=== PATIENT | female | born 1975 | race American Indian/Alaskan Native ===

== ENCOUNTER 2016-12-14 11:33 | Emergency (ER) | payer MEDICAID ==
[2016-12-14 11:36] VITALS: BP 114/67
[2016-12-14] MEDS ORDERED: LORazepam 1 MG Tab PO ONE (11:41)
--- NOTE | 2016-12-14 11:48 | EDM.PDOC ---
ED HPI NEURO - General Chief Complaint: Behavioral/Psych Stated Complaint: [facility] Time Seen by Provider: 12/14/16 11:41 Source of Information: Reports: Patient, EMS History Limitations: Reports: No limitations - History of Present Illness INITIAL COMMENTS - FREE TEXT/NARRATIVE: The patient presents by [facility] for a anxiety attack. The patient said her daughter recently got and she moved away. She has been worried about her because she is so young and that got to her this morning. She had numbness to the left side of her body and she was hyperventilating with cramping of her hands. She is seeing Dr Mckeon a neurologist at [facility] and he does not think she is having seizures but she is having anxiety attacks. She had no fever, chills, cough, chest pain, or shortness of breath. She feels better now. She just has a mild headache. The dump worker on seen did not see any seizure activity. Timing/Duration: Reports: Minutes: Location (Neuro Complaint): Reports: other (Left sided numbness and cramping of her hands) Quality (Neuro Complaint): Reports: numbness Severity: moderate Improves with: Reports: None Worsens with: Reports: None Associated Symptoms: Reports: headaches (Mild). Denies: shortness of breath, chest pain, cough, fever/chills, loss of appetite, nausea/vomiting - Related Data Allergies/ADRs: Allergies Allergy/AdvReac Type Severity Reaction Status Date / Time codeine Allergy Rash Verified 03/21/16 08:28 Penicillins Allergy Rash Verified 03/21/16 08:28 Home Meds: Home Meds ARIPiprazole [Abilify] 5 mg PO DAILY 05/16/14 [History] Escitalopram [Lexapro] 20 mg PO DAILY 05/16/14 [History] traZODone HCl [Trazodone HCl] 50 mg PO DAILY PRN 05/16/14 [History] busPIRone [Buspar] 5 mg PO TID 07/29/15 [History] traMADol HCl [Tramadol HCl] 50 mg PO Q6H PRN #20 tablet 02/23/16 [Rx] Past Medical History Other Gastrointestinal History: Laproscopy Other Genitourinary History: "kidney problems" Other OB/BYN History: laproscopic surgery for prolapsed uterus Psychiatric History: Reports: Addiction, Anxiety, Depression, Mood swings ( Explosive mood disorder), Other (see below) (Borderline personality disorder) Other Psychiatric History: boarderline personality disorder, depression and explossive disorder. - Past Surgical History Female Surgical History: Reports: Other (see below) (Exploratory laparoscopy for prolapsed uterus) Social & Family History - Family History Cardiac: Reports: CAD Oncologic: Reports: Breast, Colon, Leukemia - Tobacco Use Smoking Status *Q: Current Every Day Smoker Years of Tobacco use: 30 Packs/Tins Daily: 0.5 Used Tobacco, but Quit: No Second Hand Smoke Exposure: Yes - Alcohol Use Days Per Week of Alcohol Use: 2 Number of Drinks Per Day: 2 Total Drinks Per Week: 4 - Recreational Drug Use Recreational Drug Use: Yes Recreational Drug Type: Reports: Marijuana/Hashish Recreational Drug Use Frequency: Not Used In Over 6 Months - Living Situation & Occupation Living situation: Reports: single, with significant other (Fiance) Occupation: disabled ED ROS GENERAL - Review of Systems Review Of Systems: See Below Constitutional: Reports: no symptoms HEENT: Reports: No symptoms Respiratory: Reports: No Symptoms Cardiovascular: Reports: No symptoms Endocrine: Reports: no symptoms GI/Abdominal: Reports: No symptoms : Reports: no symptoms Musculoskeletal: Reports: no symptoms Skin: Reports: no symptoms Neurological: Reports: Headache, Numbness (To the left side of her body that is better now). Denies: Weakness ED EXAM, NEURO - Physical Exam Exam: See Below Exam Limited By: No limitations General Appearance: alert, no apparent distress Ears: normal external exam Nose: normal inspection Head Exam: atraumatic, normocephalic Neck: normal inspection Respiratory/Chest: no respiratory distress, lungs clear, normal breath sounds Cardiovascular: regular rate, rhythm, no edema, no murmur GI/Abdominal: soft, non tender, no organomegaly, no mass Neurological: alert, no motor/sensory deficits, oriented x 3 Course - Vital Signs Last Recorded V/S: Last Vital Signs Temp 97.5 F 12/14/16 11:36 Pulse 65 12/14/16 11:36 Resp 20 12/14/16 11:36 BP 114/67 12/14/16 11:36 Pulse Ox 98 12/14/16 11:36 - Orders/Labs/Meds Labs: Laboratory Tests 12/14/16 12/14/16 12/14/16 Range/Units 11:45 11:56 11:56 WBC 7.43 (3.98-10.04) K/mm3 RBC 4.71 (3.98-5.22) M/mm3 Hgb 14.5 (11.2-15.7) gm/L Hct 42.5 (34.1-44.9) % MCV 90.2 (79.4-94.8) fl MCH 30.8 (25.6-32.2) pg MCHC 34.1 (32.2-35.5) g/dl RDW Std Deviation 45.6 (36.4-46.3) fL Plt Count 272 (182-369) K/mm3 MPV 10.2 (9.4-12.3) fl Neut % (Auto) 60.8 (34.0-71.1) % Lymph % (Auto) 30.6 (19.3-51.7) % Dickinson % (Auto) 6.3 (4.7-12.5) % Eos % (Auto) 1.7 (0.7-5.8) Baso % (Auto) 0.5 (0.1-1.2) % Neut # (Auto) 4.51 (1.56-6.13) K/mm3 Lymph # (Auto) 2.27 (1.18-3.74) K/mm3 Dickinson # (Auto) 0.47 H (0.24-0.36) K/mm3 Eos # (Auto) 0.13 (0.04-0.36) K/mm3 Baso # (Auto) 0.04 (0.01-0.08) K/mm3 Sodium 140 (136-145) mEq/L Potassium 4.3 (3.5-5.1) mEq/L Chloride 103 (98-107) mEq/L Carbon Dioxide 28 (21-32) mEq/L Anion Gap 13.3 (5-15) BUN 12 (7-18) mg/dL Creatinine 0.9 (0.55-1.02) mg/dL Est Cr Clr Drug Dosing 84.23 mL/min Estimated GFR (MDRD) > 60 (>60) mL/min BUN/Creatinine Ratio 13.3 L (14-18) Glucose 100 (74-106) mg/dL Calcium 9.0 (8.5-10.1) mg/dL Total Bilirubin 0.5 (0.2-1.0) mg/dL AST 14 L (15-37) U/L ALT 26 (14-59) U/L Alkaline Phosphatase 93 (46-116) U/L Total Protein 7.4 (6.4-8.2) g/dl Albumin 3.9 (3.4-5.0) g/dl Globulin 3.5 gm/dL Albumin/Globulin Ratio 1.1 (1-2) Urine Color Yellow (Yellow) Urine Appearance Clear (Clear) Urine pH 7.0 (5.0-8.0) Ur Specific [place] 1.015 (1.005-1.030) Urine Protein Negative (Negative) Urine Glucose (UA) Negative (Negative) Urine Ketones Negative (Negative) Urine Occult Blood Negative (Negative) Urine Nitrite Negative (Negative) Urine Bilirubin Negative (Negative) Urine Urobilinogen 0.2 (0.2-1.0) Ur Leukocyte Esterase Trace H (Negative) Urine RBC Not seen (0-5) /hpf Urine WBC 0-5 (0-5) /hpf Urine WBC Clumps Not seen (NOT SEEN) /hpf Ur Epithelial Cells 5-10 H (0-5) /hpf Urine Bacteria Few (FEW) /hpf Urine Mucus Not seen (FEW) /hpf Urine Yeast Not seen (NOT SEEN) Meds: Medications Discontinued Medications Generic Name Dose Route Start Last Admin Trade Name Freq PRN Reason Stop Dose Admin Lorazepam 1 mg 12/14/16 11:41 12/14/16 11:47 Ativan PO 12/14/16 11:42 1 mg ONETIME ONE Administration - Re-Assessments/Exams Free Text/Narrative Re-Assessment/Exam: 12/14/16 11:48 I ordered some ativan 1mg by mouth and labs. 12/14/16 12:38 Her CBC and CMP look good. Her UA shows no UTI. She feels better. Her daughter is 17 and she consented for he to get and she did and then moved back to [facility]. She is going to call [facility] on Thursday and talk with a counselor. I will discharge her home. Departure - Departure Time of Disposition: 12:45 Disposition: Home, Self-Care 01 Condition: good Clinical Impression: Anxiety attack Referrals: Destini Coronado MD [Primary Care Provider] - 1 Week Forms: ED Department Discharge Additional Instructions: Take your medication as prescribed. Follow up with a counselor at [facility] this week. Please return if you are worse.
== END 2016-12-14 13:50 | disposition home or self-care (01) ==
LOC: JD.ED 11:33
DX: F41.9 Anxiety disorder, unspecified (principal); F17.210 Nicotine dependence, cigarettes, uncomplicated; F32.9 Major depressive disorder, single episode, unspecified; Z98.890 Other specified postprocedural states; Z79.899 Other long term (current) drug therapy; Z88.0 Allergy status to penicillin; Z88.5 Allergy status to narcotic agent
CPT/HCPCS: 36415; 80053; 81001; 85025; 99284; A9270; 99283

== ENCOUNTER 2017-02-24 18:13 | Emergency (ER) | payer MEDICAID ==
[2017-02-24 18:24] VITALS: BP 103/65
--- NOTE | 2017-02-24 18:36 | EDM.PDOC ---
ED HPI GENERAL MEDICAL PROBLEM - General Chief Complaint: Upper Extremity Injury/Pain Stated Complaint: L HAND INJURY Time Seen by Provider: 02/24/17 18:25 Source of Information: Reports: Patient, RN Notes Reviewed - History of Present Illness INITIAL COMMENTS - FREE TEXT/NARRATIVE: 41-year-old female states she had a seizure and fell injuring her left hand. This happened several hours ago. She states she was outside and fell onto concrete. She also scraped her right knee. He has been ambulatory without difficulty. She denies head and neck back chest or other pain or injury from this incident. The hand pain is worse over the volar and ulnar aspect of her hand Left Hand Pain Score (Numeric/FACES): 5 - Related Data Allergies Allergy/AdvReac Type Severity Reaction Status Date / Time codeine Allergy Rash Verified 02/24/17 18:24 Penicillins Allergy Rash Verified 02/24/17 18:24 Home Meds: Home Meds ARIPiprazole [Abilify] 5 mg PO DAILY 05/16/14 [History] Escitalopram [Lexapro] 20 mg PO DAILY 05/16/14 [History] traZODone HCl [Trazodone HCl] 50 mg PO DAILY PRN 05/16/14 [History] busPIRone [Buspar] 5 mg PO TID 07/29/15 [History] traMADol HCl [Tramadol HCl] 50 mg PO Q6H PRN #20 tablet 02/23/16 [Rx] Past Medical History Gastrointestinal History: Reports: Other (See Below) Other Gastrointestinal History: Laproscopy Other Genitourinary History: "kidney problems" Other OB/BYN History: 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 - Past Surgical History Female Surgical History: Reports: Other (See Below) Social & Family History - Family History Cardiac: Reports: CAD Oncologic: Reports: Breast, Colon, Leukemia - Tobacco Use Smoking Status *Q: Current Every Day Smoker Years of Tobacco use: 30 Packs/Tins Daily: 1.5 Used Tobacco, but Quit: No Second Hand Smoke Exposure: Yes - Caffeine Use Caffeine Use: Reports: Coffee, Soda - Alcohol Use Days Per Week of Alcohol Use: 2 Number of Drinks Per Day: 2 Total Drinks Per Week: 4 - Recreational Drug Use Recreational Drug Use: No Recreational Drug Type: Reports: Marijuana/Hashish Other Recreational Drug Type: has not used in years Recreational Drug Use Frequency: Not Used In Over 6 Months - Living Situation & Occupation Living situation: Reports: Single, with Significant Other Occupation: Disabled Review of Systems - Review of Systems Review Of Systems: See Below Eyes: Reports: No Symptoms Mouth/Throat: Reports: No Symptoms Respiratory: Denies: Shortness of Breath Cardiovascular: Denies: Chest Pain GI/Abdominal: Denies: Abdominal Pain, Nausea, Vomiting Musculoskeletal: Reports: Joint Pain (Ulnar aspect), Other (No visible swelling or deformity) Skin: Reports: Erythema (Left hand) Neurological: Denies: Numbness, Tingling ED EXAM, GENERAL - Physical Exam Exam: See Below General Appearance: Alert, Mild Distress Throat/Mouth: Normal Inspection Head: Atraumatic Neck: Normal Inspection, Supple, Non-Tender Respiratory/Chest: No Respiratory Distress Extremities: Other (Tender left hand no visible swelling or deformity, wrist forearm and elbow are all nontender). No: Leg Pain Neurological: Alert, Oriented, No Motor/Sensory Deficits Skin Exam: Warm, Dry, Intact Course - Vital Signs Last Recorded V/S: Last Vital Signs Temp 97.5 F 02/24/17 18:21 Pulse 97 02/24/17 18:21 Resp 16 02/24/17 18:21 BP 103/65 02/24/17 18:21 Pulse Ox 98 02/24/17 18:21 - Orders/Labs/Meds Orders: Active Orders 24 hr Category Date Time Status Hand Comp Min 3V Lt [CR] Stat Exams 02/24/17 18:32 Taken Acetaminophen [Tylenol] Med 02/24/17 19:12 Once 975 mg PO NOW ONE - Re-Assessments/Exams Free Text/Narrative Re-Assessment/Exam: 02/24/17 19:12 X-rays of hand show no fracture Departure - Departure Time of Disposition: 19:13 Disposition: Home, Self-Care 01 Condition: Fair Clinical Impression: Hand contusion Qualifiers: Encounter type: initial encounter Laterality: left Qualified Code(s): S60.222A - Contusion of left hand, initial encounter Fall Qualifiers: Encounter type: initial encounter Qualified Code(s): W19.XXXA - Unspecified fall, initial encounter - Discharge Information Forms: ED Department Discharge Additional Instructions: Twan wrap left hand, ice packs and elevation for swelling, you may continue to alternate Tylenol and ibuprofen or motrin as needed for discomfort, have rechecked if not getting back to normal within 5-7 days as expected - My Orders Last 24 Hours: My Active Orders 02/24/17 18:32 Hand Comp Min 3V Lt [CR] Stat 02/24/17 19:12 Acetaminophen [Tylenol] 975 mg PO NOW ONE - Assessment/Plan Last 24 Hours: My Active Orders 02/24/17 18:32 Hand Comp Min 3V Lt [CR] Stat 02/24/17 19:12 Acetaminophen [Tylenol] 975 mg PO NOW ONE
[2017-02-24] MEDS ORDERED: Acetaminophen 325 MG Tab PO ONE (19:12)
--- NOTE | 2017-02-25 07:49 | CR ---
Left hand: Four views of the left hand were obtained. Comparison: No previous study. Joint spaces are preserved. No fracture, dislocation or other bony abnormality is seen. Impression: 1. No abnormality is identified on three-view left hand study. Diagnostic code #1
== END 2017-02-24 19:25 | disposition home or self-care (01) ==
LOC: JD.ED 18:13
DX: S60.222A Contusion of left hand, initial encounter (principal); F41.9 Anxiety disorder, unspecified; F32.9 Major depressive disorder, single episode, unspecified; F17.210 Nicotine dependence, cigarettes, uncomplicated; Z79.899 Other long term (current) drug therapy; Z88.5 Allergy status to narcotic agent; Z88.0 Allergy status to penicillin; W19.XXXA Unspecified fall, initial encounter
CPT/HCPCS: 73130; 99283; A9270; 99282

== ENCOUNTER 2017-03-21 22:52 | Emergency (ER) | payer MEDICAID ==
[2017-03-21 23:13] VITALS: BP 97/68
--- NOTE | 2017-03-21 23:17 | EDM.PDOC ---
[id number]: SOB/VOMITING Time Seen by Provider: 03/21/17 23:16 Source of Information: Reports: Patient History Limitations: Reports: No Limitations - History of Present Illness INITIAL COMMENTS - FREE TEXT/NARRATIVE: 42-year-old female arrives in the ED apparently after traveling all day from [place]. Been ill for the last several days and states she's been sick for a month. However patient reports that she's got dysuria urgency and frequency but she can't tell me for how many days. She's got fever chills nausea and vomiting. Diffuse abdominal pain productive cough of whitish sputum. Has not been able to keep down any food or fluid for the last day and a half. Had a little bit of diarrhea today. No blood noted. Had noted blood in her urine in the past but not recently. Onset: Unknown/Unsure (Several days.) Duration: Day(s): Location: Reports: Chest, Abdomen (Reductive cough diffuse abdominal pain particularly lower associated with intermittent), Back ( dysuria urgency frequency. pain in her low back bilaterally. ) Quality: Reports: Ache, Dull Severity: Moderate Improves with: Reports: None Worsens with: Reports: Other Context: Denies: Activity, Exercise (Trying to eat.), Lifting, Sick Contact, Trauma, Other Associated Symptoms: Reports: cough w sputum, Fever/Chills, Loss of Appetite, Malaise, Nausea/Vomiting, Weakness, Other (Dizziness feels like she could fall down when she stands up.). Denies: Diaphoresis (Intermittent productive cough of whitish sputum sputum. 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: Other (see below) Chest Pain Score (Numeric/FACES): 7 - Related Data Allergies Allergy/AdvReac Type Severity Reaction Status Date / Time codeine Allergy Rash Verified 02/24/17 18:24 Penicillins Allergy Rash Verified 02/24/17 18:24 Home Meds: Home Meds ARIPiprazole [Abilify] 5 mg PO DAILY 05/16/14 [History] Escitalopram [Lexapro] 20 mg PO DAILY 05/16/14 [History] traZODone HCl [Trazodone HCl] 50 mg PO DAILY PRN 05/16/14 [History] busPIRone [Buspar] 5 mg PO TID 07/29/15 [History] traMADol HCl [Tramadol HCl] 50 mg PO Q6H PRN #20 tablet 02/23/16 [Rx] Levofloxacin [Levaquin] 500 mg PO Q24H #7 tablet 03/22/17 [Rx] Past Medical History Gastrointestinal History: Reports: Other (See Below) Other Gastrointestinal History: Laproscopy Other Genitourinary History: "kidney problems" Other OB/BYN History: 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 - Past Surgical History Female Surgical History: Reports: Other (See Below) Social & Family History - Family History Family Medical History: Noncontributory Cardiac: Reports: CAD Oncologic: Reports: Breast, Colon, Leukemia - Tobacco Use Smoking Status *Q: Current Every Day Smoker Years of Tobacco use: 31 Packs/Tins Daily: 1 Used Tobacco, but Quit: No Second Hand Smoke Exposure: Yes - Caffeine Use Caffeine Use: Reports: Coffee, Soda - Alcohol Use Days Per Week of Alcohol Use: 2 Number of Drinks Per Day: 2 Total Drinks Per Week: 4 - Recreational Drug Use Recreational Drug Use: No Recreational Drug Type: Reports: Marijuana/Hashish Other Recreational Drug Type: has not used in years Recreational Drug Use Frequency: Not Used In Over 6 Months - Living Situation & Occupation Living situation: Reports: Single, with Significant Other Occupation: Disabled ED ROS GENERAL - Review of Systems Review Of Systems: See Below Constitutional: Reports: Fever, Chills, Malaise, Weakness, Fatigue, Decreased Appetite, Weight Loss HEENT: Reports: No Symptoms Respiratory: Reports: Shortness of Breath (Whitish sputum), Cough, Sputum Cardiovascular: Reports: Lightheadedness. Denies: Chest Pain, Blood Pressure Problem, Claudication, Dyspnea on Exertion, Edema, Orthopnea, Palpitations Endocrine: Reports: Fatigue GI/Abdominal: Reports: Abdominal Pain (Generalized upper abdominal pain from vomiting. Lower abdominal pain mostly suprapubic.) : Reports: Dysuria, Flank Pain, Frequency, Urgency Musculoskeletal: Reports: Back Pain Skin: Reports: No Symptoms Neurological: Reports: Dizziness, Headache, Difficulty Walking (Needs help to walk because she so weak and dizzy.), Weakness ED EXAM, GENERAL - Physical Exam Exam: See Below Exam Limited By: Other (Appears ill. Difficult historian.) General Appearance: Mild Distress, Other (Appears ill.) Eye Exam: Bilateral Eye: Normal Inspection Ears: Normal External Exam, Normal TMs Throat/Mouth: Other Head: Atraumatic (Lips are dry and cracked. Tongue is mildly dry. Oropharynx is otherwise normal.), Normocephalic Neck: Normal Inspection, Supple, Non-Tender, Full Range of Motion. No: Lymphadenopathy (L), Lymphadenopathy (R) Respiratory/Chest: No Respiratory Distress, Lungs Clear, Normal Breath Sounds, No Accessory Muscle Use, Other (Does have a productive sounding cough however. Note she is a smoker pack per day.) Cardiovascular: Normal Peripheral Pulses, Regular Rate, Rhythm, No Edema, No Gallop, No Murmur Peripheral Pulses: 2+: Posterior Tibial (L), Posterior Tibial (R), Dorsalis Pedis (L), Dorsalis Pedis (R) GI/Abdominal: Normal Bowel Sounds, Soft, Non-Tender, No Organomegaly, No Distention, No Abnormal Bruit, No Mass, Other (No surgical wounds) Back Exam: CVA Tenderness (L), CVA Tenderness (R) (Mild) Extremities: Normal Inspection, Normal Range of Motion, Non-Tender, No Pedal Edema, Normal Capillary Refill Neurological: Alert, Oriented, CN II-XII Intact, Normal Cognition, Normal Gait, Normal Reflexes Psychiatric: Flat Affect Skin Exam: Warm, Dry, Intact, Normal Color, No Rash Course - Vital Signs Last Recorded V/S: Last Vital Signs Temp 36.7 C 03/21/17 23:09 Pulse 73 03/21/17 23:09 Resp 16 03/21/17 23:09 BP 97/68 03/21/17 23:09 Pulse Ox - Orders/Labs/Meds Orders: Active Orders 24 hr Category Date Time Status Orthostatic Vital Signs [RC] ASDIRECTED Care 03/21/17 23:28 Active Chest 1V Frontal [CR] Stat Exams 03/21/17 23:16 Taken CULTURE URINE [RM] Stat Lab 03/22/17 01:05 Received Labs: Laboratory Tests 03/21/17 03/21/17 03/21/17 Range/Units 23:40 23:40 23:40 WBC 9.08 (3.98-10.04) K/mm3 RBC 4.73 (3.98-5.22) M/mm3 Hgb 14.4 (11.2-15.7) gm/L Hct 42.8 (34.1-44.9) % MCV 90.5 (79.4-94.8) fl MCH 30.4 (25.6-32.2) pg MCHC 33.6 (32.2-35.5) g/dl RDW Std Deviation 45.7 (36.4-46.3) fL Plt Count 292 (182-369) K/mm3 MPV 11.2 (9.4-12.3) fl Neutrophils % (Manual) 62 H (40-60) % Band Neutrophils % 1 (0-10) % Lymphocytes % (Manual) 28 (20-40) % Atypical Lymphs % 4 % Monocytes % (Manual) 3 (2-10) % Eosinophils % (Manual) 2 (0.7-5.8) % Basophils % (Manual) 0 L (0.1-1.2) Platelet Estimate Adequate Plt Morphology Comment Normal RBC Morph Comment Normal Sodium 140 (136-145) mEq/L Potassium 3.8 (3.5-5.1) mEq/L Chloride 103 (98-107) mEq/L Carbon Dioxide 31 (21-32) mEq/L Anion Gap 9.8 (5-15) BUN 7 (7-18) mg/dL Creatinine 0.9 (0.55-1.02) mg/dL Est Cr Clr Drug Dosing TNP Estimated GFR (MDRD) > 60 (>60) mL/min BUN/Creatinine Ratio 7.8 L (14-18) Glucose 114 H (74-106) mg/dL Lactic Acid (0.4-2.0) mmol/L Calcium 9.2 (8.5-10.1) mg/dL Total Bilirubin 0.4 (0.2-1.0) mg/dL AST 16 (15-37) U/L ALT 24 (14-59) U/L Alkaline Phosphatase 89 (46-116) U/L C-Reactive Protein 1.7 H* (<1.0) mg/dL Total Protein 7.9 (6.4-8.2) g/dl Albumin 4.0 (3.4-5.0) g/dl Globulin 3.9 gm/dL Albumin/Globulin Ratio 1.0 (1-2) Amylase 44 (25-115) U/L Urine Color (Yellow) Urine Appearance (Clear) Urine pH (5.0-8.0) Ur Specific [place] (1.005-1.030) Urine Protein (Negative) Urine Glucose (UA) (Negative) Urine Ketones (Negative) Urine Occult Blood (Negative) Urine Nitrite (Negative) Urine Bilirubin (Negative) Urine Urobilinogen (0.2-1.0) Ur Leukocyte Esterase (Negative) Urine RBC (0-5) /hpf Urine WBC (0-5) /hpf Ur Epithelial Cells (0-5) /hpf Amorphous Sediment (NOT SEEN) /hpf Urine Bacteria (FEW) /hpf Fine Granular Casts (0-5) /lpf Urine Mucus (FEW) /hpf Ketones 0.19 (0.0-0.3) mM 03/21/17 03/22/17 Range/Units 23:43 00:13 WBC (3.98-10.04) K/mm3 RBC (3.98-5.22) M/mm3 Hgb (11.2-15.7) gm/L Hct (34.1-44.9) % MCV (79.4-94.8) fl MCH (25.6-32.2) pg MCHC (32.2-35.5) g/dl RDW Std Deviation (36.4-46.3) fL Plt Count (182-369) K/mm3 MPV (9.4-12.3) fl Neutrophils % (Manual) (40-60) % Band Neutrophils % (0-10) % Lymphocytes % (Manual) (20-40) % Atypical Lymphs % % Monocytes % (Manual) (2-10) % Eosinophils % (Manual) (0.7-5.8) % Basophils % (Manual) (0.1-1.2) Platelet Estimate Plt Morphology Comment RBC Morph Comment Sodium (136-145) mEq/L Potassium (3.5-5.1) mEq/L Chloride (98-107) mEq/L Carbon Dioxide (21-32) mEq/L Anion Gap (5-15) BUN (7-18) mg/dL Creatinine (0.55-1.02) mg/dL Est Cr Clr Drug Dosing Estimated GFR (MDRD) (>60) mL/min BUN/Creatinine Ratio (14-18) Glucose (74-106) mg/dL Lactic Acid 0.9 (0.4-2.0) mmol/L Calcium (8.5-10.1) mg/dL Total Bilirubin (0.2-1.0) mg/dL AST (15-37) U/L ALT (14-59) U/L Alkaline Phosphatase (46-116) U/L C-Reactive Protein (<1.0) mg/dL Total Protein (6.4-8.2) g/dl Albumin (3.4-5.0) g/dl Globulin gm/dL Albumin/Globulin Ratio (1-2) Amylase (25-115) U/L Urine Color Yellow (Yellow) Urine Appearance Slt cloudy H (Clear) Urine pH 6.0 (5.0-8.0) Ur Specific [place] > or = 1.030 (1.005-1.030) Urine Protein Trace H (Negative) Urine Glucose (UA) Negative (Negative) Urine Ketones Negative (Negative) Urine Occult Blood Trace-lysed H (Negative) Urine Nitrite Negative (Negative) Urine Bilirubin Negative (Negative) Urine Urobilinogen 1.0 (0.2-1.0) Ur Leukocyte Esterase 1+ H (Negative) Urine RBC 0-5 (0-5) /hpf Urine WBC 0-5 (0-5) /hpf Ur Epithelial Cells 10-20 H (0-5) /hpf Amorphous Sediment Few H (NOT SEEN) /hpf Urine Bacteria Few (FEW) /hpf Fine Granular Casts 0-5 (0-5) /lpf Urine Mucus Few (FEW) /hpf Ketones (0.0-0.3) mM Meds: Medications Discontinued Medications Generic Name Dose Route Start Last Admin Trade Name Freq PRN Reason Stop Dose Admin Dextrose/Sodium Chloride 1,000 mls @ 999 mls/hr 03/21/17 23:30 03/21/17 23:48 Dextrose 5%-Normal Saline IV 999 mls/hr ASDIRECTED EMMANUEL Administration Ketorolac Tromethamine 30 mg 03/21/17 23:30 03/21/17 23:57 Toradol IVPUSH 30 mg ONETIME EMMANUEL Administration Levofloxacin 500 mg 03/22/17 00:55 07/16/17 01:14 Levaquin PO 03/22/17 00:56 500 mg ONETIME ONE Administration Metoclopramide HCl 7.5 mg 03/21/17 23:25 03/21/17 23:48 Reglan IVPUSH 03/21/17 23:26 7.5 mg ONETIME ONE Administration - Radiology Interpretation Free Text/Narrative:: 42-year-old female presents the ED with reported being ill for a month. Particularly worse the last week. Productive cough with whitish sputum. She smokes a pack of cigarettes per day. Sore throat. Intermittent nausea and vomiting for the last 3-1/2 days. Any food or fluid down the last day. One loose stool yesterday. Associated dysuria urgency and frequency. Diffuse low back pain intermittent fever and chills. Exam reveals ENT exam to be essentially normal. Lips are dry tongue is dry and she is volume depleted. Blood pressure is 97 /68. Orthostatics to be checked. She does have mild costovertebral angle tenderness bilaterally. She is afebrile on my examination however. Benign abdominal exam. Possible UTI with pyelonephritis. Plan routine labs with CRP. Urinalysis one view chest x-ray. D5 normal saline at open given Reglan 7.5 mg IV for nausea relief Toradol 30 mg IV for generalized aching pain relief. Cultures were not ordered as she is afebrile at this time. - Re-Assessments/Exams Free Text/Narrative Re-Assessment/Exam: 03/22/17 00:35 chest x-ray is within normal limits. White count was 9.08 hemoglobin 14.4 hematocrit 42.8 platelets normal 292,000. Sodium is 140 potassium is 3.. Toradol 3 bicarbonate slightly elevated at 31. Anion gap is 9.8. Glucose 114 CRP is minimally elevated 1.7. Ketones are 0.19- Normal 03/22/17 01:00: Urinalysis shows only trace of leukocyte esterase. However shows numerous ureteral epithelial cells. She may still well have a low-grade pyelonephritis. I will have a urine culture ordered. Plan I'm going to place her on Levaquin 500 mg daily for the next 8 days first tablet to be foot TB provided to the ED tonight. Continue Motrin 600 mg every 6 hours or Aleve 2 tablets every 8 hours for headache and fever relief. Departure - Departure Time of Disposition: 00:56 Disposition: Home, Self-Care 01 Condition: Fair Clinical Impression: Bronchitis Urinary tract infection Qualifiers: Urinary tract infection type: acute cystitis Hematuria presence: without hematuria Qualified Code(s): N30.00 - Acute cystitis without hematuria - Discharge Information Prescriptions: Levofloxacin [Levaquin] 500 mg PO Q24H #7 tablet Instructions: Acute Bronchitis, [id number], Urinary Tract Infection, Adult Referrals: PCP,Not In Area [Primary Care Provider] - Forms: ED Department Discharge Additional Instructions: Evaluation in the emergency room tonight in regards to upper respiratory tract infection with paroxysmal productive cough. You have bronchitis clinically. Chest x-ray did not reveal any signs of pneumonia. Lab testing revealed a normal white blood cell count and essentially a normal chemistry. Did show some degree of infection and therefore you are given first dose of antibiotic Levaquin 500 mg in the emergency room tonight. He will need to fill this prescription for the same medication Levaquin 7 500 mg once daily for the next 7 days to clear up infection both lungs and in the urinary tract. Continue Aleve 2 tablets every 8 hours as needed for relief of fever and/or pain. - My Orders Last 24 Hours: My Active Orders 03/21/17 23:16 Chest 1V Frontal [CR] Stat 03/21/17 23:28 Orthostatic Vital Signs [RC] ASDIRECTED 03/22/17 01:05 CULTURE URINE [RM] Stat - Assessment/Plan Last 24 Hours: My Active Orders 03/21/17 23:16 Chest 1V Frontal [CR] Stat 03/21/17 23:28 Orthostatic Vital Signs [RC] ASDIRECTED 03/22/17 01:05 CULTURE URINE [RM] Stat
[2017-03-21] MEDS ORDERED: Metoclopramide 10 MG/2 ML SDV IVPUSH ONE (23:25)
[2017-03-21] MEDS ORDERED: Dextrose 5%-0.9% NaCl 1,000 ML IV SCH (23:30)
[2017-03-21] MEDS ORDERED: Ketorolac 30 MG/ML SDV IVPUSH SCH (23:30)
[2017-03-22] MEDS ORDERED: Levofloxacin 250 MG Tab PO ONE (00:55)
--- NOTE | 2017-03-22 15:19 | CR ---
Chest: Portable view of the chest was obtained. Comparison: Previous chest x-ray of 03/21/16. Heart size and mediastinum are normal. Lungs are clear. Bony structures are grossly intact. Impression: 1. Nothing acute is identified on portable chest x-ray. Diagnostic code #1
== END 2017-03-22 01:18 | disposition home or self-care (01) ==
LOC: JD.ED 22:52
DX: N30.00 Acute cystitis without hematuria (principal); J40 Bronchitis, not specified as acute or chronic; F17.210 Nicotine dependence, cigarettes, uncomplicated; Z88.5 Allergy status to narcotic agent; Z88.0 Allergy status to penicillin; Z79.899 Other long term (current) drug therapy
CPT/HCPCS: 36415; 71010; 80053; 81001; 82009; 82150; 83605; 85025; 86140; 87086; 87088; 96361; 96374; 96375; 99284; A9270; J1885; J2765; J7042

== ENCOUNTER 2018-06-10 09:27 | Emergency (ER) | payer MEDICAID ==
[2018-06-10 09:40] VITALS: BP 108/77
--- NOTE | 2018-06-10 09:55 | EDM.PDOC ---
ED HPI GENERAL MEDICAL PROBLEM - General Chief Complaint: Neurological Problem Stated Complaint: SEIZURE AND MEMORY LOSS Time Seen by Provider: 06/10/18 09:47 Source of Information: Reports: Patient, Family (daughter) History Limitations: Reports: Altered Mental Status - History of Present Illness INITIAL COMMENTS - FREE TEXT/NARRATIVE: 43-year-old female presents to the ED in the accompaniement of her daughters. Daughters provide the history. She came down this morning and was asked some acting somewhat confused and dazed. While walking she seemed to start to develop trembling or repetitive movement of one of her arms and eyes seem to roll back into her head. Daughters a larger to the couch. They went and found their stepdad to attend to her. With time symptoms seem to get better will lose more formal history of 2 tonic-clonic activity. There is no loss of bowel or bladder control no injury to the tongue. His exhibited these type behaviors in the past usually due to anxiety. She has seen neurology services in the past and they did not feel she had a true seizure disorder more like pseudoseizure disorder. Patient states she doesn't recollect her family members names this morning she is confused and disoriented. She drinks approximately 2 ounces of alcohol a day per history. She smokes at least a pack to pack and half per day. Her medications are hydroxyzine at bedtime 50 mg to help sleep. Takes buspirone 15 mg wice a day for anxiety disorder and Lexapro 20 mg daily for depression. Onset: Today Onset Date: 06/10/18 Onset Time: 08:00 Duration: Minutes: Location: Reports: Generalized (Confusion dazed. Questionable seizure-like activity this morning while walking from downstairs into the living room.) Quality: Reports: Other Severity: Moderate (No pain confused in terms of ability to identify her daughters and her .) Improves with: Reports: Other Worsens with: Reports: None (Things seem to be gradually improving over time) Context: Reports: Other. Denies: Activity, Exercise, Lifting, Sick Contact, Trauma Associated Symptoms: Reports: Confusion (Spontaneous occurrence of symptoms this morning upon arising), Headaches, Weakness, Other (Questionnaire seizure- like activity involving one of her arms.). 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 (see below) (No changes to recent medications and no medications today.) - Related Data Allergies Allergy/AdvReac Type Severity Reaction Status Date / Time codeine Allergy Rash Verified 06/10/18 09:40 Penicillins Allergy Hives Verified 06/10/18 09:40 Home Meds: Home Meds Escitalopram [Lexapro] 20 mg PO DAILY 05/16/14 [History] busPIRone [Buspar] 15 mg PO BID 07/29/15 [History] hydrOXYzine pamoate [Hydroxyzine Pamoate] 75 mg PO BEDTIME 06/10/18 [History] Past Medical History Gastrointestinal History: Reports: Other (See Below) Other Gastrointestinal History: Laproscopy Genitourinary History: Reports: Renal Calculus, UTI, Recurrent Other Genitourinary History: "kidney problems" 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 - Past Surgical History Female Surgical History: Reports: Other (See Below) Social & Family History - Family History Family Medical History: Noncontributory Cardiac: Reports: CAD Oncologic: Reports: Breast, Colon, Leukemia - Tobacco Use Smoking Status *Q: Current Every Day Smoker Years of Tobacco use: 20 Packs/Tins Daily: 1 - Caffeine Use Caffeine Use: Reports: Coffee, Soda - Alcohol Use Days Per Week of Alcohol Use: 7 Number of Drinks Per Day: 2 Total Drinks Per Week: 14 - Recreational Drug Use Recreational Drug Use: No - Living Situation & Occupation Living situation: Reports: Single, with Significant Other Occupation: Disabled ED ROS GENERAL - Review of Systems Review Of Systems: See Below Constitutional: Reports: Malaise, Weakness, Fatigue, Decreased Appetite, Other ( Vital signs show BP 108/77. Respiratory is 18 with pulse ox on 96% on room air pulse is 91 and sinus temperatures 36.4). Denies: Fever, Chills HEENT: Denies: Glasses, Hearing Loss, Sinus Problem, Throat Pain Respiratory: Denies: Shortness of Breath, Wheezing, Pleuritic Chest Pain, Cough , Sputum Cardiovascular: Reports: No Symptoms, Lightheadedness. Denies: Chest Pain, Blood Pressure Problem, Claudication, Orthopnea Endocrine: Reports: Fatigue GI/Abdominal: Denies: Anorexia, Black Stool, Bloody Stool, Constipation, Diarrhea, Decreased Appetite, Difficulty Swallowing, Distension, Flatus, Hematemesis, Hematochezia, Melena, Other : Reports: Frequency Musculoskeletal: Reports: Back Pain Skin: Reports: No Symptoms Neurological: Reports: Confusion, Dizziness, Headache, Pre-Existing Deficit ( Has had similar type events before), Seizure (Questionable seizure activity this morning. Sounds like pseudoseizure activity by history), Difficulty Walking , Weakness. Denies: Numbness, Paresthesia, Syncope, Tingling, Tremors, Change in Speech, Gait Disturbance, Other Psychiatric: Reports: Anxiety, Other (Under good deal stress. Her had to go to court this morning in regards to bankruptcy.) Hematologic/Lymphatic: Reports: No Symptoms Immunologic: Reports: No Symptoms - Physical Exam Exam: See Below Exam Limited By: Altered Mental Status (She answers a lot of questions with I don't know.) General Appearance: Alert, WD/WN, No Apparent Distress, Other (Smells very strongly of cigarette smoke.) Eye Exam: Bilateral Eye: Normal Inspection, PERRL Throat/Mouth: Normal Inspection, Normal Oropharynx, Other. No: Evidence of Tongue Biting Head Exam: Atraumatic (Lips are dry and cracked. There is no sign of tongue biting), Normocephalic Neck: Normal Inspection, Tender Lateral (Tenderness throughout palpation of the left lateral neck.). No: Lymphadenopathy (L), Lymphadenopathy (R) Respiratory/Chest: No Respiratory Distress, Lungs Clear, Normal Breath Sounds, No Accessory Muscle Use, Chest Non-Tender, Wheezing Cardiovascular: Normal Peripheral Pulses, Regular Rate, Rhythm, No Edema, No Gallop, No Murmur (Occasional expiratory wheeze) GI/Abdominal: Normal Bowel Sounds, Soft, Non-Tender, No Organomegaly, No Abnormal Bruit, No Mass, Pelvis Stable, Other (There is evidence of laparoscopy before but no sign of gallbladder surgery. She's not sure what surgery she may have had in the past) Neuro Exam (Abbreviated): CN II-XII Intact, Normal Cognition, Normal Reflexes, No Motor/Sensory Deficits. No: Oriented (Disoriented to time and place), Normal Gait Back Exam: Normal Inspection, Full Range of Motion Extremities: Normal Inspection, Normal Range of Motion, Non-Tender, No Pedal Edema Psychiatric: Flat Affect Skin Exam: Warm, Dry, Intact, Normal Color, No Rash EKG INTERPRETATION EKG Date: 06/10/18 Time: 10:00 Rhythm: Other (Sinus bradycardia) Rate (Beats/Min): 51 [place]: Normal P-Wave: Present (First-degree AV block) QRS: Other (Initial poor R-wave progression decreased voltage limb leads) ST-T: Normal QT: Prolonged (Mildly prolonged) EKG Interpretation Comments: Abnormal ECG Course - Vital Signs Last Recorded V/S: Last Vital Signs Temp 36.4 C 06/10/18 09:34 Pulse 91 06/10/18 09:34 Resp 18 06/10/18 09:34 BP 108/77 06/10/18 09:34 Pulse Ox 96 06/10/18 09:34 - Orders/Labs/Meds Orders: Active Orders 24 hr Category Date Time Status EKG Documentation Completion [RC] STAT Care 06/10/18 09:47 Active Labs: Laboratory Tests 06/10/18 06/10/18 Range/Units 09:50 09:50 WBC 8.74 (3.98-10.04) K/mm3 RBC 4.80 (3.98-5.22) M/mm3 Hgb 14.5 (11.2-15.7) gm/L Hct 43.3 (34.1-44.9) % MCV 90.2 (79.4-94.8) fl MCH 30.2 (25.6-32.2) pg MCHC 33.5 (32.2-35.5) g/dl RDW Std Deviation 44.4 (36.4-46.3) fL Plt Count 269 (182-369) K/mm3 MPV 10.4 (9.4-12.3) fl Neutrophils % (Manual) 63 H (40-60) % Band Neutrophils % 2 (0-10) % Lymphocytes % (Manual) 31 (20-40) % Atypical Lymphs % 0 % Monocytes % (Manual) 2 (2-10) % Eosinophils % (Manual) 2 (0.7-5.8) % Basophils % (Manual) 0 L (0.1-1.2) Platelet Estimate Adequate RBC Morph Comment Normal Sodium 136 (136-145) mEq/L Potassium 4.1 (3.5-5.1) mEq/L Chloride 101 (98-107) mEq/L Carbon Dioxide 26 (21-32) mEq/L Anion Gap 13.1 (5-15) BUN 13 (7-18) mg/dL Creatinine 0.8 (0.55-1.02) mg/dL Est Cr Clr Drug Dosing 86.36 mL/min Estimated GFR (MDRD) > 60 (>60) mL/min BUN/Creatinine Ratio 16.3 (14-18) Glucose 97 (74-106) mg/dL Calcium 9.1 (8.5-10.1) mg/dL Magnesium 2.0 (1.8-2.4) mg/dl Total Bilirubin 0.5 (0.2-1.0) mg/dL AST 17 (15-37) U/L ALT 17 (14-59) U/L Alkaline Phosphatase 81 (46-116) U/L C-Reactive Protein 0.5 (<1.0) mg/dL Total Protein 7.3 (6.4-8.2) g/dl Albumin 4.1 (3.4-5.0) g/dl Globulin 3.2 gm/dL Albumin/Globulin Ratio 1.3 (1-2) Ethyl Alcohol 0.00 (0.00) gm% Meds: Medications Discontinued Medications Generic Name Dose Route Start Last Admin Trade Name Freq PRN Reason Stop Dose Admin Dextrose/Sodium Chloride 1,000 mls @ 999 mls/hr 06/10/18 10:00 06/10/18 09:53 Dextrose 5%-Normal Saline IV 999 mls/hr ASDIRECTED EMMANUEL Administration Lorazepam 1.5 mg 06/10/18 09:58 06/10/18 10:12 Ativan IVPUSH 06/10/18 09:59 1.5 mg ONETIME ONE Administration - Radiology Interpretation Free Text/Narrative:: 43-year-old female presents to the ED with a bout of confusion and disorientation this morning. She came down from upstairs after his sleeping presumably during the night and was very confused when questioned by her daughters this morning. She was wanting to live room she seemed to develop seizure-like activity with listing to the left side some movement disorder of the left upper extremity and eyes rolling back into her head. Her daughter stated her to the couch. Subsequently she seemed to get better with her ' s attendance to her. Questioning whether or not she may have had a seizure this morning. I read the notes and she is present to the ED on several occasions with similar type behaviors especially when she is under great stress. All GI also felt that she does not have a true seizure disorder but is suffering pseudoseizure disorder. This morning she is exhibiting some degree of conversion hysteria up with not being able to remember even her daughter's name or her 's name etc. She is afebrile. There is no outward signs of obvious encephalitis or brain infection. She does drink alcohol daily and smokes a pack and half cigarettes per day. Plan IV D5 normal saline at open as she's not able to drink yet today. Routine labs including an ethanol level. Of note the patient does takes hydroxyzine at bedtime to help sleep which may contribute to confused state shows takes Lexapro 20 mg daily and buspirone 15 mg twice a day for anxiety depression. She denies any recent changes to her medications but she can't remember for sure. Plan Ativan 1.5mg IV. CT head will be done to rule out any central nervous system lesion. - Re-Assessments/Exams Free Text/Narrative Re-Assessment/Exam: 06/10/18 11:16 CT of the brain is within normal limits. Labs are back white count is 8.74 with 63% neutrophils and 2% bands reported. Hemoglobin is 14.5 with a hematocrit of 43.3. Platelet count is normal 269,000. Chemistry shows a sodium 136 with a potassium of 4.1. Cord 101 with a bicarbonate 26. And a gap is normal at 13.1. BUN is 13 with a creatinine of 0.8. Estimated GFR is greater than 60. Glucose is 97. Calcium 9.1. Magnesium is normal at 2.0. Liver function is normal. Blood alcohol at present is 0.00. Patient is a 2 hamburgers since being here and put chocolate pudding. Oldest daughter will be coming back to pick her up around noon. Departure - Departure Time of Disposition: 11:30 Disposition: Home, Self-Care 01 Condition: Fair Clinical Impression: Psychiatric pseudoseizure, Anxiety as acute reaction to exceptional stress - Discharge Information *PRESCRIPTION DRUG MONITORING PROGRAM REVIEWED*: Not Applicable *COPY OF PRESCRIPTION DRUG MONITORING REPORT IN PATIENT LUZ ELENA: Not Applicable Instructions: Non-Epileptic Seizures, Adult, Living With Anxiety Referrals: Uzma Richard MD [Primary Care Provider] - Forms: ED Department Discharge Additional Instructions: Evaluation the emergency room today guards to development of transient confusion and disorientation and some movement disorder of the left upper extremity. It appears that you have suffered a pseudoseizure which means activity that looks like seizure activity but it does not represent a true seizure. This is often precipitated by anxiety or exceptional stress. CT scan of the brain done today is normal. Laboratory workup was also completely normal. You're treated with IV fluids to provide rehydration and Ativan 1.5 mg IV for anxiety. Suggest home to sleep for 4-6 hours if able. - My Orders Last 24 Hours: My Active Orders 06/10/18 09:47 EKG Documentation Completion [RC] STAT - Assessment/Plan Last 24 Hours: My Active Orders 06/10/18 09:47 EKG Documentation Completion [RC] STAT
[2018-06-10] MEDS ORDERED: LORazepam 2 MG/ML SDV IVPUSH ONE (09:58)
[2018-06-10] MEDS ORDERED: Dextrose 5%-0.9% NaCl 1,000 ML IV SCH (10:00)
--- NOTE | 2018-06-10 12:10 | CT ---
Head CT Technique: Multiple axial sections through the brain were obtained. Intravenous contrast was not utilized. Comparison: Previous MRI brain dated 01/22/[address] study of 03/21/16. Findings: Ventricles limited basal cisterns and sulci over the convexities are within normal limits for the patient's age. Well-defined low density area is seen within the right posterior basal ganglia most likely due to a prominent perivascular space. No other abnormal parenchymal densities are seen. No evidence of intracranial hemorrhage. No midline shift or mass effect is seen. Bone window settings were reviewed which shows no acute calvarial abnormality. Visualized sinuses are clear. Impression: 1. Incidental finding. Nothing acute is appreciated on noncontrast head CT exam. Diagnostic code #2
== END 2018-06-10 11:45 | disposition home or self-care (01) ==
LOC: JD.ED 09:27
DX: R56.9 Unspecified convulsions (principal); F41.9 Anxiety disorder, unspecified; F17.210 Nicotine dependence, cigarettes, uncomplicated; F32.9 Major depressive disorder, single episode, unspecified; Z79.899 Other long term (current) drug therapy; Z88.5 Allergy status to narcotic agent; Z88.0 Allergy status to penicillin
CPT/HCPCS: 36415; 70450; 70450-26; 80053; 83735; 85007; 85027; 86140; 93005; 93010; 96361; 96374; 99285-25; G0480; J2060; J7042

== ENCOUNTER 2020-05-06 10:00 | Emergency (ER) | payer MEDICAID ==
[2020-05-06 10:28] VITALS: BP 106/66; PULSE 64
[2020-05-06] MEDS ORDERED: Cyclobenzaprine 10 MG Tab PO ONE (10:28)
[2020-05-06] MEDS ORDERED: HYDROmorphone 1 MG/ML Syringe IM ONE (10:28)
[2020-05-06] MEDS ORDERED: Ketorolac 60 MG/2 ML SDV IM ONE (10:28)
--- NOTE | 2020-05-06 10:38 | EDM.PDOC ---
ED HPI GENERAL MEDICAL PROBLEM - General Chief Complaint: Back Pain or Injury Stated Complaint: BACK PAIN Time Seen by Provider: 05/06/20 10:16 Source of Information: Reports: Patient History Limitations: Reports: No Limitations - History of Present Illness INITIAL COMMENTS - FREE TEXT/NARRATIVE: The patient presents with right lower back pain. This pain started this morning when she woke up. She denies any injury. She has some numbness in the right leg. She has no bowel or bladder problems. She does not have a history of back troubles. She did not heavy lifting, twisting or bending lately. Onset: Sudden Duration: Hour(s): Location: Reports: Back (Right lower) Quality: Reports: Sharp Severity: Severe Improves with: Reports: Immobilization Worsens with: Reports: Movement Context: Denies: Trauma Associated Symptoms: Reports: No Other Symptoms Right Back Pain Score (Numeric/FACES): 8 - Related Data Allergies Allergy/AdvReac Type Severity Reaction Status Date / Time codeine Allergy Severe Rash Verified 05/06/20 10:20 Penicillins Allergy Severe Hives Verified 05/06/20 10:20 Home Meds: Home Meds Escitalopram [Lexapro] 10 mg PO BEDTIME 05/16/14 [History] busPIRone [Buspar] 10 mg PO BID 07/29/15 [History] Cyclobenzaprine [Flexeril] 10 mg PO TID PRN #20 tab 05/06/20 [Rx] Hydrocodone/Acetaminophen [Hydrocodone-Acetamin 5-325 mg] 1 - 2 each PO Q6HR PRN #10 tablet 05/06/20 [Rx] Rosuvastatin [Crestor] 10 mg PO BEDTIME 05/06/20 [History] Past Medical History Cardiovascular History: Reports: High Cholesterol Gastrointestinal History: Reports: Other (See Below) Other Gastrointestinal History: Laproscopy Genitourinary History: Reports: Renal Calculus, UTI, Recurrent Other Genitourinary History: "kidney problems" 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 - Past Surgical History Female Surgical History: Reports: Other (See Below) Social & Family History - Family History Family Medical History: Noncontributory Cardiac: Reports: CAD Oncologic: Reports: Breast, Colon, Leukemia - Tobacco Use Smoking Status *Q: Current Every Day Smoker Years of Tobacco use: 34 Packs/Tins Daily: 0.5 - Caffeine Use Caffeine Use: Reports: Coffee, Soda - Alcohol Use Days Per Week of Alcohol Use: 7 Number of Drinks Per Day: 1 Total Drinks Per Week: 7 - Recreational Drug Use Recreational Drug Use: No - Living Situation & Occupation Living situation: Reports: Single, with Significant Other Occupation: Disabled ED ROS GENERAL - Review of Systems Review Of Systems: See Below Constitutional: Reports: No Symptoms HEENT: Reports: No Symptoms Respiratory: Reports: No Symptoms Cardiovascular: Reports: No Symptoms Endocrine: Reports: No Symptoms GI/Abdominal: Reports: No Symptoms : Reports: No Symptoms Musculoskeletal: Reports: Back Pain Neurological: Reports: No Symptoms Psychiatric: Reports: No Symptoms ED EXAM,LOWER BACK PAIN/INJURY - Physical Exam Exam: See Below Exam Limited By: No Limitations General Appearance: Alert, No Apparent Distress Ears: Normal External Exam Nose: Normal Inspection Head: Atraumatic, Normocephalic Neck: Normal Inspection Respiratory/Chest: No Respiratory Distress, Lungs Clear, Normal Breath Sounds Cardiovascular: Regular Rate, Rhythm, No Edema, No Murmur GI/Abdominal: Soft, Non-Tender, No Organomegaly, No Mass Back Exam: Other (Pain upon palpation to the right lower back) Course - Vital Signs Last Recorded V/S: Last Vital Signs Temp 97.5 F 05/06/20 10:15 Pulse 64 05/06/20 10:15 Resp 18 05/06/20 10:15 BP 106/66 05/06/20 10:15 Pulse Ox 97 05/06/20 10:15 - Orders/Labs/Meds Meds: Medications Discontinued Medications Generic Name Dose Route Start Last Admin Trade Name Freq PRN Reason Stop Dose Admin Cyclobenzaprine HCl 10 mg 05/06/20 10:28 05/06/20 10:33 Flexeril PO 05/06/20 10:29 10 mg ONETIME ONE Administration Hydromorphone HCl 1 mg 05/06/20 10:28 05/06/20 10:34 Dilaudid IM 05/06/20 10:29 1 mg ONETIME ONE Administration Ketorolac Tromethamine 60 mg 05/06/20 10:28 05/06/20 10:33 Toradol IM 05/06/20 10:29 60 mg ONETIME ONE Administration Ondansetron HCl 4 mg 05/06/20 11:09 05/06/20 11:13 Zofran Odt PO 05/06/20 11:10 4 mg ONETIME ONE Administration - Re-Assessments/Exams Free Text/Narrative Re-Assessment/Exam: 05/06/20 10:37 I do not feel x-rays would be of benefit. I did give her dilaudid 1mg IM, toradol 60mg IM and flexeril 10mg PO. 05/06/20 11:43 She feels better but she is nauseated now. I gave her some zofran and she is feeling better. I will discharge her home. Departure - Departure Time of Disposition: 11:45 Disposition: Home, Self-Care 01 Condition: Good Clinical Impression: Low back pain Qualifiers: Chronicity: acute Back pain laterality: right Sciatica presence: with sciatica Sciatica laterality: sciatica of right side Qualified Code(s): M54.41 - Lumbago with sciatica, right side - Discharge Information *PRESCRIPTION DRUG MONITORING PROGRAM REVIEWED*: Not Applicable *COPY OF PRESCRIPTION DRUG MONITORING REPORT IN PATIENT LUZ ELENA: Not Applicable Prescriptions: Cyclobenzaprine [Flexeril] 10 mg PO TID PRN #20 tab PRN Reason: Pain Hydrocodone/Acetaminophen [Hydrocodone-Acetamin 5-325 mg] 1 - 2 each PO Q6HR PRN #10 tablet PRN Reason: Pain Referrals: PCP,Not In Area [Primary Care Provider] - Red Farley NP [Nurse Practitioner] - 1 Week Forms: ED Department Discharge Additional Instructions: Take motrin or tylenol for pain. If that does not help, try the hydrocodone and flexeril. Put ice on your back for 15 minutes 3 times per day for 2 days. Sepsis Event Note (ED) - Evaluation Sepsis Screening Result: No Definite Risk - Focused Exam Vital Signs: Vital Signs Temp Pulse Resp BP Pulse Ox 05/06/20 10:15 97.5 F 64 18 106/66 97
[2020-05-06] MEDS ORDERED: Ondansetron 4 MG Tab.DIS PO ONE (11:09)
== END 2020-05-06 12:04 | disposition home or self-care (01) ==
LOC: JD.ED 10:00
DX: M54.41 Lumbago with sciatica, right side (principal); R11.0 Nausea; F41.9 Anxiety disorder, unspecified; F32.9 Major depressive disorder, single episode, unspecified; F17.210 Nicotine dependence, cigarettes, uncomplicated; Z88.5 Allergy status to narcotic agent; Z88.0 Allergy status to penicillin; Z79.899 Other long term (current) drug therapy
CPT/HCPCS: 96372; 99283; A9270; J1170; J1885

== ENCOUNTER 2021-03-21 16:24 | Emergency (ER) | payer MEDICAID ==
[2021-03-21 16:40] VITALS: BP 101/77; PULSE 90
--- NOTE | 2021-03-21 16:40 | EDM.PDOC ---
ED HPI GENERAL MEDICAL PROBLEM - General Chief Complaint: Neuro Symptoms/Deficits Stated Complaint: POSS HEAT STROKE Time Seen by Provider: 03/21/21 16:40 - History of Present Illness INITIAL COMMENTS - FREE TEXT/NARRATIVE: 46-year-old female presents the emergency room with a headache and possible heatstroke. Patient was standing out in the sun for about an hour and then took her hour to walk home. She developed a headache and she gets these frequently and along with this headache she had change of vision in her left eye that she often gets with her headaches. She describes this change of vision is everything went josh k for a brief second and then it was blurry. By the time of my evaluation this completely resolved. The time she had the vision changes was roughly 20 minutes. And this is typical for her with her migraines. Being in a cool room the patient does feel little bit better. Patient's meds reviewed she is normally on lisinopril but she ran out of this a few days ago and her systolic blood pressures 110 at the time of my evaluation and was 101 at the time of admission. - Related Data Allergies Allergy/AdvReac Type Severity Reaction Status Date / Time codeine Allergy Severe Rash Verified 03/21/21 16:40 Penicillins Allergy Severe Hives Verified 03/21/21 16:40 Home Meds: Home Meds Escitalopram [Lexapro] 10 mg PO BEDTIME 05/16/14 [History] busPIRone [Buspar] 10 mg PO BID 07/29/15 [History] Rosuvastatin [Crestor] 10 mg PO DAILY 05/06/20 [History] lamoTRIgine [Lamotrigine] 150 mg PO DAILY 03/21/21 [History] Past Medical History Cardiovascular History: Reports: High Cholesterol Gastrointestinal History: Reports: Other (See Below) Other Gastrointestinal History: Laproscopy Genitourinary History: Reports: Renal Calculus, UTI, Recurrent Other Genitourinary History: "kidney problems" Other KILN HAND History: 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 - Past Surgical History Female Surgical History: Reports: Other (See Below) Social & Family History - Family History Family Medical History: No Pertinent Family History Cardiac: Reports: CAD Oncologic: Reports: Breast, Colon, Leukemia - Caffeine Use Caffeine Use: Reports: Coffee, Soda - Living Situation & Occupation Living situation: Reports: Single, with Significant Other Occupation: Disabled ED ROS GENERAL - Review of Systems Review Of Systems: See Below Constitutional: Reports: Fatigue. Denies: Fever, Chills HEENT: Reports: Vision Change (See HPI) Respiratory: Reports: No Symptoms Cardiovascular: Reports: No Symptoms Endocrine: Reports: No Symptoms GI/Abdominal: Reports: Decreased Appetite, Nausea (This has resolved). Denies: Constipation, Diarrhea, Vomiting : Reports: No Symptoms Musculoskeletal: Reports: No Symptoms Neurological: Reports: Headache, Other (See history of present illness) Psychiatric: Reports: No Symptoms ED EXAM, GENERAL - Physical Exam Exam: See Below Exam Limited By: No Limitations General Appearance: Alert, No Apparent Distress Eye Exam: Left Eye: EOMI, Normal Fundi, Normal Inspection, PERRL, Other (Left eye vision changes have completely resolved) Ears: Normal External Exam, Normal Canal, Hearing Grossly Normal, Normal TMs Nose: Normal Inspection, Normal Mucosa, No Blood Throat/Mouth: Normal Inspection, Normal Lips, Normal Gums, Normal Oropharynx, Normal Voice, No Airway Compromise Head: Atraumatic, Normocephalic Neck: Normal Inspection, Supple, Non-Tender, Full Range of Motion. No: Lymphadenopathy (L), Lymphadenopathy (R) Respiratory/Chest: No Respiratory Distress, Lungs Clear, Normal Breath Sounds Cardiovascular: Regular Rate, Rhythm, No Edema, No Murmur GI/Abdominal: Normal Bowel Sounds, Soft, Non-Tender Back Exam: Normal Inspection. No: CVA Tenderness (L), CVA Tenderness (R) Extremities: Normal Inspection, No Pedal Edema #1 Interpretation EKG Date: 03/21/21 Rhythm: NSR P-Wave: Absent (First-degree AV block) QRS: Normal ST-T: Normal QT: Normal Comparison: No Change (No significant change other than her QTC is a little shorter compared to 06/10/2018) Course - Vital Signs Last Recorded V/S: Last Vital Signs Temp 36.4 C 03/21/21 16:37 Pulse 90 03/21/21 16:37 Resp 20 03/21/21 16:37 BP 101/77 03/21/21 16:37 Pulse Ox 93 L 03/21/21 16:37 - Orders/Labs/Meds Orders: Active Orders 24 hr Category Date Time Status CORONAVIRUS COVID-19 ROXANE [MOLEC] Stat Lab 03/21/21 17:28 Ordered UA RFX RAVI AND CULT IF INDIC [URIN] Stat Lab 03/21/21 17:25 Ordered Labs: Laboratory Tests 03/21/21 03/21/21 Range/Units 17:20 17:20 WBC 10.12 H (3.98-10.04) K/mm3 RBC 4.63 (3.98-5.22) M/mm3 Hgb 13.8 (11.2-15.7) gm/dl Hct 42.3 (34.1-44.9) % MCV 91.4 (79.4-94.8) fl MCH 29.8 (25.6-32.2) pg MCHC 32.6 (32.2-35.5) g/dl RDW Std Deviation 46.3 (36.4-46.3) fL Plt Count 292 (182-369) K/mm3 MPV 10.7 (9.4-12.3) fl Neut % (Auto) 64.1 (34.0-71.1) % Lymph % (Auto) 27.4 (19.3-51.7) % [place] % (Auto) 6.2 (4.7-12.5) % Eos % (Auto) 1.6 (0.7-5.8) Baso % (Auto) 0.5 (0.1-1.2) % Neut # (Auto) 6.49 H (1.56-6.13) K/mm3 Lymph # (Auto) 2.77 (1.18-3.74) K/mm3 [place] # (Auto) 0.63 H (0.24-0.36) K/mm3 Eos # (Auto) 0.16 (0.04-0.36) K/mm3 Baso # (Auto) 0.05 (0.01-0.08) K/mm3 Sodium 141 (136-145) mEq/L Potassium 3.6 (3.5-5.1) mEq/L Chloride 104 (98-107) mEq/L Carbon Dioxide 28 (21-32) mEq/L Anion Gap 12.6 (5-15) BUN 7 (7-18) mg/dL Creatinine 0.4 L (0.55-1.02) mg/dL Est Cr Clr Drug Dosing 179.75 mL/min Estimated GFR (MDRD) > 60 (>60) mL/min BUN/Creatinine Ratio 17.5 (14-18) Glucose 101 H (70-99) mg/dL Calcium 9.0 (8.5-10.1) mg/dL Total Bilirubin 0.4 (0.2-1.0) mg/dL AST 16 (15-37) U/L ALT 27 (14-59) U/L Alkaline Phosphatase 90 (46-116) U/L Troponin I < 0.017 (0.00-0.056) ng/mL Total Protein 7.2 (6.4-8.2) g/dl Albumin 3.8 (3.4-5.0) g/dl Globulin 3.4 gm/dL Albumin/Globulin Ratio 1.1 (1-2) Meds: Medications Discontinued Medications Generic Name Dose Route Start Last Admin Trade Name Briana PRN Reason Stop Dose Admin Lactated Ringer's 500 mls @ 999 mls/hr 03/21/21 17:26 03/21/21 17:55 Ringers, Lactated IV 03/21/21 17:56 999 mls/hr .BOLUS ONE Administration Lactated Ringer's 1,000 mls @ 125 mls/hr 03/21/21 17:30 Ringers, Lactated IV ASDIRECTED EMMANUEL - Re-Assessments/Exams Free Text/Narrative Re-Assessment/Exam: 03/21/21 18:59 Labs are essentially noncontributory head CT is unremarkable. The patient received 500 cc of LR and feels much better. She would like to go home at this time we will discharge. Departure - Departure Time of Disposition: 18:59 Disposition: Home, Self-Care 01 Clinical Impression: Atypical migraine - Discharge Information Instructions: Migraine Headache, [id number] Referrals: PCP,Unknown [Primary Care Provider] - Forms: ED Department Discharge Additional Instructions: Return to the emergency room with any questions problems or worsening symptoms. Push plenty of fluids and get plenty of rest tonight. You do not have a local healthcare provider please establish with one the hospital clinic phone number is [phone] Sepsis Event Note (ED) - Focused Exam Vital Signs: Vital Signs Temp Pulse Resp BP Pulse Ox 03/21/21 16:37 36.4 C 90 20 101/77 93 L - My Orders Last 24 Hours: My Active Orders 03/21/21 17:25 UA RFX RAVI AND CULT IF INDIC [URIN] Stat 03/21/21 17:28 CORONAVIRUS COVID-19 ROXANE [MOLEC] Stat - Assessment/Plan Last 24 Hours: My Active Orders 03/21/21 17:25 UA RFX RAVI AND CULT IF INDIC [URIN] Stat 03/21/21 17:28 CORONAVIRUS COVID-19 ROXANE [MOLEC] Stat
[2021-03-21] MEDS ORDERED: Lactated Ringers 500 ML IV ONE (17:26)
[2021-03-21] MEDS ORDERED: Lactated Ringers 1,000 ML IV SCH (17:30)
--- NOTE | 2021-03-21 18:20 | CT ---
Head CT Technique: Multiple axial sections through the brain were obtained. Intravenous contrast was utilized. Reconstructed coronal and sagittal images were obtained. Comparison: Prior head CT study of 06/10/18. Findings: Ventricles along with basal cisterns and sulci over the convexities appear within normal limits for the patient's age. Right and left globes are symmetric. No retro-bulbar abnormality is appreciated. Symmetric low density areas are seen within the basal ganglia which are stable from prior exam and are incidental. No abnormal parenchymal densities are seen. No evidence of intracranial hemorrhage is seen. No midline shift or mass-effect is seen. Bone window settings were reviewed. Visualized mastoid sinuses and paranasal sinuses show nothing acute. No acute calvarial abnormality is appreciated. Impression: 1. Nothing acute is seen on noncontrast head CT exam. If patient has persistent symptoms, consider MRI to further evaluate. Diagnostic code #1
== END 2021-03-21 19:27 | disposition home or self-care (01) ==
LOC: JD.ED 16:24
DX: G43.909 Migraine, unspecified, not intractable, without status migrainosus (principal); E78.00 Pure hypercholesterolemia, unspecified; Z88.5 Allergy status to narcotic agent; Z88.0 Allergy status to penicillin; Z79.899 Other long term (current) drug therapy
CPT/HCPCS: 36415; 70450; 80053; 84484; 85025; 99284; J7120; 93010

== ENCOUNTER 2021-07-22 18:43 | Emergency (ER) | payer MEDICAID ==
[2021-07-22 19:05] VITALS: BP 116/81; PULSE 100
--- NOTE | 2021-07-22 19:33 | EDM.PDOC ---
ED HPI GENERAL MEDICAL PROBLEM - General Chief Complaint: Respiratory Problem Stated Complaint: CONGESTION/KIDNEY PAIN Time Seen by Provider: 07/22/21 19:09 Source of Information: Reports: Patient, RN Notes Reviewed History Limitations: Reports: No Limitations - History of Present Illness INITIAL COMMENTS - FREE TEXT/NARRATIVE: Patient is a 46-year-old female presenting to the emergency department with complaints of nasal congestion and burning and bilateral low back pain. Reports symptoms began last evening. She is had no documented fevers but states that she "feels warm ". She is concerned that she could have Covid or urinary tract infection. She denies any cough, shortness of breath, chest pain, chills, nausea, vomiting, or dysuria. States she did have one episode of diarrhea this morning but has had none since. kidney Pain Score (Numeric/FACES): 5 - Related Data Allergies Allergy/AdvReac Type Severity Reaction Status Date / Time codeine Allergy Severe Rash Verified 07/22/21 19:05 Penicillins Allergy Severe Hives Verified 07/22/21 19:05 Home Meds: Home Meds Escitalopram [Lexapro] 10 mg PO BEDTIME 05/16/14 [History] busPIRone [Buspar] 10 mg PO BID 07/29/15 [History] Rosuvastatin [Crestor] 10 mg PO DAILY 05/06/20 [History] lamoTRIgine [Lamotrigine] 150 mg PO DAILY 03/21/21 [History] Past Medical History - Past Health History Medical/Surgical History: Denies Medical/Surgical History Cardiovascular History: Reports: High Cholesterol Gastrointestinal History: Reports: Other (See Below) Other Gastrointestinal History: Laproscopy Genitourinary History: Reports: Renal Calculus, UTI, Recurrent Other Genitourinary History: "kidney problems" 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 - Infectious Disease History Infectious Disease History: Reports: None - Past Surgical History GI Surgical History: Reports: Cholecystectomy Female Surgical History: Reports: Other (See Below) Other Female Surgeries/Procedures: prolapse uterus Social & Family History - Family History Family Medical History: No Pertinent Family History Cardiac: Reports: CAD Oncologic: Reports: Breast, Colon, Leukemia - Tobacco Use Tobacco Use Status *Q: Current Every Day Tobacco User Years of Tobacco use: 35 Packs/Tins Daily: 0.5 - Caffeine Use Caffeine Use: Reports: Coffee - Recreational Drug Use Recreational Drug Use: No - Living Situation & Occupation Living situation: Reports: Single, with Significant Other Occupation: Disabled ED ROS GENERAL - Review of Systems Review Of Systems: Comprehensive ROS is negative, except as noted in HPI. ED EXAM, GENERAL - Physical Exam Exam: See Below Exam Limited By: No Limitations General Appearance: Alert, WD/WN, No Apparent Distress Respiratory/Chest: No Respiratory Distress, Lungs Clear, Normal Breath Sounds, No Accessory Muscle Use, Chest Non-Tender Cardiovascular: Normal Peripheral Pulses, Regular Rate, Rhythm, No Edema, No Gallop, No JVD, No Murmur, No Rub GI/Abdominal: Normal Bowel Sounds, Soft, Non-Tender, No Organomegaly, No Distention, No Abnormal Bruit, No Mass Back Exam: Normal Inspection, Full Range of Motion. No: CVA Tenderness (L), CVA Tenderness (R) Neurological: Alert, Oriented, CN II-XII Intact, Normal Cognition, Normal Gait, Normal Reflexes, No Motor/Sensory Deficits Psychiatric: Normal Affect, Normal Mood Skin Exam: Warm, Dry, Intact, Normal Color, No Rash Course - Vital Signs Last Recorded V/S: Last Vital Signs Temp 97.8 F 07/22/21 19:02 Pulse 100 07/22/21 19:02 Resp 18 07/22/21 19:02 BP 116/81 07/22/21 19:02 Pulse Ox 92 L 07/22/21 19:02 - Orders/Labs/Meds Labs: Laboratory Tests 07/22/21 07/22/21 Range/Units 19:18 19:18 Urine Color Yellow (Yellow) Urine Appearance Clear (Clear) Urine pH 6.0 (5.0-8.0) Ur Specific [place] > or = 1.030 (1.005-1.030) Urine Protein Trace H (Negative) Urine Glucose (UA) Negative (Negative) Urine Ketones Negative (Negative) Urine Occult Blood Negative (Negative) Urine Nitrite Negative (Negative) Urine Bilirubin Negative (Negative) Urine Urobilinogen 1.0 (0.2-1.0) Ur Leukocyte Esterase Negative (Negative) Urine RBC 0-5 (0-5) /hpf Urine WBC 0-5 (0-5) /hpf Ur Squamous Epith Cells 5-10 H (0-5) /hpf Urine Bacteria Few (FEW) /hpf Urine Mucus Moderate H (FEW) /hpf Influenza Type A RNA Negative (NEGATIVE) Influenza Type B RNA Negative (NEGATIVE) SARS-CoV-2 RNA (ROXANE) Positive H (NEGATIVE) - Re-Assessments/Exams Free Text/Narrative Re-Assessment/Exam: Patient is a 46-year-old female presenting to the emergency department with complaints of nasal congestion and burning as well as low back pain. Denies any cough or shortness of breath. She has felt warm but has not had any documented fevers. Exam is unremarkable. I have ordered urinalysis and Covid test. 07/22/21 21:35 Patient's urinalysis negative for blood or infection. She is unfortunately Covid positive. Discussed isolation as well as symptomatic treatment and return precautions. She verbalized understanding this. Discharge instructions as documented. Departure - Departure Time of Disposition: 21:36 Disposition: Home, Self-Care 01 Condition: Good Clinical Impression: COVID-19 - Discharge Information *PRESCRIPTION DRUG MONITORING PROGRAM REVIEWED*: No *COPY OF PRESCRIPTION DRUG MONITORING REPORT IN PATIENT LUZ ELENA: No Instructions: COVID-19: Quarantine vs. Isolation - [facility] (08/23/2020) Referrals: Xochitl Paredes PA-C [Primary Care Provider] - Forms: ED Department Discharge Additional Instructions: Go home and rest. Use Tylenol or ibuprofen as needed for discomfort. Ensure you are taking an adequate amount of fluid. If you experience worsening symptoms such as chest pain, significant shortness of breath, or any other concerning symptoms, please not hesitate to return to the ER for reevaluation. Sepsis Event Note (ED) - Evaluation Sepsis Screening Result: No Definite Risk - Focused Exam Vital Signs: Vital Signs Temp Pulse Resp BP Pulse Ox 07/22/21 19:02 97.8 F 100 18 116/81 92 L
[2021-07-22 21:20] LABS: CORONAVIRUS COVID-19 NAA POSITIVE (NEGATIVE)
== END 2021-07-22 21:50 | disposition home or self-care (01) ==
LOC: JD.ED 18:43
DX: U07.1 COVID-19 (principal); E78.00 Pure hypercholesterolemia, unspecified; Z88.0 Allergy status to penicillin; Z88.5 Allergy status to narcotic agent; Z79.899 Other long term (current) drug therapy; Z72.0 Tobacco use
CPT/HCPCS: 0240U; 81001; 99283

== ENCOUNTER 2021-08-07 18:30 | Emergency (ER) | payer MEDICAID ==
[2021-08-07 19:37] VITALS: BP 104/79; PULSE 98
[2021-08-07] MEDS ORDERED: Diphtheria,Pertussis(Acell),Tetanus Vaccine 0.5 ML Syringe IM ONE (19:39)
--- NOTE | 2021-08-07 19:47 | EDM.PDOC ---
ED HPI GENERAL MEDICAL PROBLEM - General Chief Complaint: Laceration Stated Complaint: HAND LAC Time Seen by Provider: 08/07/21 19:26 Source of Information: Reports: Patient, RN Notes Reviewed History Limitations: Reports: No Limitations - History of Present Illness INITIAL COMMENTS - FREE TEXT/NARRATIVE: Patient is a 46-year-old female presenting to the emergency department with complaints of laceration to her left hand. Patient states that she was attempting to cut a zip tie with a new paring knife when it slipped, causing a laceration. She is unsure when her last tetanus vaccination was. Left Hand Pain Score (Numeric/FACES): 3 - Related Data Allergies Allergy/AdvReac Type Severity Reaction Status Date / Time codeine Allergy Severe Rash Verified 07/22/21 19:05 Penicillins Allergy Severe Hives Verified 07/22/21 19:05 Home Meds: Home Meds Escitalopram [Lexapro] 10 mg PO BEDTIME 05/16/14 [History] busPIRone [Buspar] 10 mg PO BID 07/29/15 [History] Rosuvastatin [Crestor] 10 mg PO DAILY 05/06/20 [History] lamoTRIgine [Lamotrigine] 150 mg PO DAILY 03/21/21 [History] Past Medical History - Past Health History Medical/Surgical History: Denies Medical/Surgical History Cardiovascular History: Reports: High Cholesterol Gastrointestinal History: Reports: Other (See Below) Other Gastrointestinal History: Laproscopy Genitourinary History: Reports: Renal Calculus, UTI, Recurrent Other Genitourinary History: "kidney problems" 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 - Infectious Disease History Infectious Disease History: Reports: None - Past Surgical History GI Surgical History: Reports: Cholecystectomy Female Surgical History: Reports: Other (See Below) Other Female Surgeries/Procedures: prolapse uterus Social & Family History - Family History Family Medical History: No Pertinent Family History Cardiac: Reports: CAD Oncologic: Reports: Breast, Colon, Leukemia - Caffeine Use Caffeine Use: Reports: Coffee - Living Situation & Occupation Living situation: Reports: Single, with Significant Other Occupation: Disabled ED ROS GENERAL - Review of Systems Review Of Systems: Comprehensive ROS is negative, except as noted in HPI. ED EXAM, SKIN/RASH Exam: See Below Exam Limited By: No Limitations General Appearance: Alert, WD/WN, No Apparent Distress Respiratory/Chest: No Respiratory Distress, Lungs Clear, Normal Breath Sounds, No Accessory Muscle Use, Chest Non-Tender Cardiovascular: Normal Peripheral Pulses, Regular Rate, Rhythm, No Edema, No Gallop, No JVD, No Murmur, No Rub Neurological: Alert, Oriented, CN II-XII Intact, Normal Cognition, Normal Gait, Normal Reflexes, No Motor/Sensory Deficits Psychiatric: Normal Affect, Normal Mood Skin: Other (1 cm superficial laceration to the webbing distal to the left thumb. No active bleeding.) Course - Vital Signs Last Recorded V/S: Last Vital Signs Temp 97.8 F 08/07/21 19:31 Pulse 98 08/07/21 19:31 Resp 16 08/07/21 19:31 BP 104/79 08/07/21 19:31 Pulse Ox 98 08/07/21 19:31 - Orders/Labs/Meds Orders: Active Orders 24 hr Category Date Time Status Vaccine to be Administered/Admin Charge [RC] ASDIRECTED Care 08/07/21 19:40 Active Meds: Medications Discontinued Medications Generic Name Dose Route Start Last Admin Trade Name Briana PRN Reason Stop Dose Admin Diphtheria/Tetanus/Acell Pertussis 0.5 ml 08/07/21 19:39 08/07/21 19:45 Diphtheria,Pertussis(Acell),Tetanus Vaccine 0.5 Ml Syringe IM 08/07/21 19:40 0.5 ml .ONCE ONE Administration - Re-Assessments/Exams Free Text/Narrative Re-Assessment/Exam: Patient is a 46-year-old female presenting to the emergency department with complaints of laceration to her left hand. On exam, there is a 1 cm superficial laceration to the webbing distal to the left thumb. No active bleeding. Area was cleansed with sterile saline and CHG soap. Bacitracin and Band-Aid applied. We will update her tetanus vaccination today. Discharge instructions as documented. Departure - Departure Time of Disposition: 19:48 Disposition: Home, Self-Care 01 Condition: Good Clinical Impression: Laceration - Discharge Information *PRESCRIPTION DRUG MONITORING PROGRAM REVIEWED*: No *COPY OF PRESCRIPTION DRUG MONITORING REPORT IN PATIENT LUZ ELENA: No Instructions: Laceration Care, Adult Referrals: Xochitl Paredes PA-C [Primary Care Provider] - Forms: ED Department Discharge Additional Instructions: Wash wound twice daily with soap and water. Apply antibiotic ointment and Band-Aid. Watch for signs of infection including increased redness, swelling, or purulent drainage. If this should occur, recommend follow-up either in the clinic or the ER. Sepsis Event Note (ED) - Evaluation Sepsis Screening Result: No Definite Risk - Focused Exam Vital Signs: Vital Signs Temp Pulse Resp BP Pulse Ox 08/07/21 19:31 97.8 F 98 16 104/79 98 - My Orders Last 24 Hours: My Active Orders 08/07/21 19:40 Vaccine to be Administered/Admin Charge [RC] ASDIRECTED - Assessment/Plan Last 24 Hours: My Active Orders 08/07/21 19:40 Vaccine to be Administered/Admin Charge [RC] ASDIRECTED
== END 2021-08-07 19:56 | disposition home or self-care (01) ==
LOC: JD.ED 18:30
DX: S61.012A Laceration without foreign body of left thumb without damage to nail, initial encounter (principal); E78.00 Pure hypercholesterolemia, unspecified; Z88.0 Allergy status to penicillin; Z88.5 Allergy status to narcotic agent; Z79.899 Other long term (current) drug therapy; Z23 Encounter for immunization; W26.0XXA Contact with knife, initial encounter
CPT/HCPCS: 90471; 90715; 99282; 99284

== ENCOUNTER 2021-11-28 22:14 | Emergency (ER) | payer MEDICAID ==
[2021-11-28 22:23] VITALS: BP 128/76; PULSE 74
[2021-11-28] MEDS ORDERED: Ibuprofen 600 MG Tab PO ONE (22:40)
== END 2021-11-28 23:50 | disposition home or self-care (01) ==
LOC: JD.ED 22:14
DX: R56.9 Unspecified convulsions (principal); E78.00 Pure hypercholesterolemia, unspecified; I10 Essential (primary) hypertension; E66.9 Obesity, unspecified; Z68.30 Body mass index [BMI] 30.0-30.9, adult; Z88.5 Allergy status to narcotic agent; Z88.0 Allergy status to penicillin; Z79.899 Other long term (current) drug therapy; Z72.0 Tobacco use
CPT/HCPCS: 36415; 80053; 80306; 80307; 82550; 83735; 84100; 85025; 99284; A9270

== ENCOUNTER 2022-01-08 21:27 | Emergency (ER) | payer MEDICAID ==
[2022-01-08 21:36] VITALS: BP 106/80; PULSE 77
[2022-01-08] MEDS ORDERED: Ibuprofen 400 MG Tab PO ONE (22:04)
== END 2022-01-08 22:51 | disposition home or self-care (01) ==
LOC: JD.ED 21:27
DX: R51.9 Headache, unspecified (principal); E78.00 Pure hypercholesterolemia, unspecified; E66.9 Obesity, unspecified; Z68.30 Body mass index [BMI] 30.0-30.9, adult; Z88.5 Allergy status to narcotic agent; Z88.0 Allergy status to penicillin; Z79.899 Other long term (current) drug therapy; Z72.0 Tobacco use
CPT/HCPCS: 99284; A9270

== ENCOUNTER 2022-01-22 09:38 | Day surgery (SDC) | payer MEDICAID ==
[~2022-01-22 09:38] MED LIST: Lactated Ringers 1,000 ML IV SCH; Lidocaine 1%/Sod Bicarbonate in NS 8.4% 1 ML Syringe IDERM PRN; Sodium Chloride 0.9% 10 ML Syringe FLUSH PRN; Sodium Chloride 0.9% 10 ML Syringe FLUSH SCH
[2022-01-22] MEDS ORDERED: Propofol 200 MG/20 ML SDV ONE ×3 (12:52→13:54)
[2022-01-22] MEDS ORDERED: Lidocaine 1% 4 ML ONE (12:52)
[2022-01-22] MEDS ORDERED: Midazolam 1 MG/ML 2 ML SDV ONE (12:54)
[2022-01-22] MEDS ORDERED: Ondansetron 4 MG/2 ML SDV ONE (13:18)
[2022-01-22] MEDS ORDERED: ePHEDrine 50 MG/ML SDV ONE (13:20)
[2022-01-22] MEDS ORDERED: Bupivacaine 0.5% 30 ML SDV ONE (13:33)
[2022-01-22 15:27] VITALS: BP 101/68; PULSE 68
== END 2022-01-22 15:20 | disposition home or self-care (01) ==
LOC: JD.SDS 09:38
PROVIDERS: ATTEND Surgery
DX: K62.1 Rectal polyp (principal); K57.31 Diverticulosis of large intestine without perforation or abscess with bleeding; K31.89 Other diseases of stomach and duodenum; K29.70 Gastritis, unspecified, without bleeding; K25.9 Gastric ulcer, unspecified as acute or chronic, without hemorrhage or perforation; K64.8 Other hemorrhoids; K22.70 Barrett's esophagus without dysplasia; K21.9 Gastro-esophageal reflux disease without esophagitis; F41.9 Anxiety disorder, unspecified; F32.A Depression, unspecified; E78.5 Hyperlipidemia, unspecified; F17.200 Nicotine dependence, unspecified, uncomplicated; Z90.49 Acquired absence of other specified parts of digestive tract; Z79.899 Other long term (current) drug therapy; Z88.0 Allergy status to penicillin; Z88.5 Allergy status to narcotic agent
CPT/HCPCS: 43239; 45380; 46221; J2250; J2405; J2704; J3490; J7120

== ENCOUNTER 2022-04-06 16:25 | Emergency (ER) | payer MEDICAID ==
[2022-04-06 18:00] VITALS: BP 110/48; PULSE 81
[2022-04-06] MEDS ORDERED: Ketorolac 60 MG/2 ML SDV IM ONE (18:46)
== END 2022-04-06 20:26 | disposition home or self-care (01) ==
LOC: JD.ED 16:25
DX: S99.912A Unspecified injury of left ankle, initial encounter (principal); E78.00 Pure hypercholesterolemia, unspecified; E66.9 Obesity, unspecified; Z68.30 Body mass index [BMI] 30.0-30.9, adult; Z88.5 Allergy status to narcotic agent; Z88.0 Allergy status to penicillin; Z79.899 Other long term (current) drug therapy; Z86.16 Personal history of COVID-19; Z90.49 Acquired absence of other specified parts of digestive tract; W17.2XXA Fall into hole, initial encounter
CPT/HCPCS: 73610; 96372; 99283; J1885

== ENCOUNTER 2022-04-30 00:03 | Emergency (ER) | payer MEDICAID ==
[2022-04-30] MEDS ORDERED: HYDROmorphone 0.5 MG/0.5 ML Syringe IVPUSH ONE (01:28)
[2022-04-30] MEDS ORDERED: Sodium Chloride 0.9% 1,000 ML IV SCH (01:30)
[2022-04-30] MEDS ORDERED: Iopamidol 612 MG/ML 100 ML Bottle IVPUSH ONE (02:13)
[2022-04-30] MEDS ORDERED: Sodium Chloride 0.9% 10 ML Syringe FLUSH ONE (02:13)
[2022-04-30] MEDS ORDERED: Potassium Chloride 20 MEQ Tab.ER PO ONE (02:52)
[2022-04-30 03:52] VITALS: BP 91/64; PULSE 61
== END 2022-04-30 03:41 | disposition home or self-care (01) ==
LOC: JD.ED 00:03
DX: K64.8 Other hemorrhoids (principal); E87.6 Hypokalemia; K21.9 Gastro-esophageal reflux disease without esophagitis; F17.210 Nicotine dependence, cigarettes, uncomplicated; Z88.5 Allergy status to narcotic agent; Z88.0 Allergy status to penicillin; Z79.899 Other long term (current) drug therapy; Z90.49 Acquired absence of other specified parts of digestive tract; Z86.16 Personal history of COVID-19
CPT/HCPCS: 36415; 74177; 80053; 83735; 85007; 85027; 96361; 96374; 99284; A9270; J1170; J3490; J7030; Q9967

== ENCOUNTER 2022-05-14 16:17 | Emergency (ER) | payer MEDICAID ==
[2022-05-14 16:27] VITALS: BP 103/63; PULSE 60
[2022-05-14] MEDS ORDERED: Sodium Chloride 0.9% 1,000 ML IV ONE (17:06)
[2022-05-14] MEDS ORDERED: Ondansetron 4 MG/2 ML SDV IVPUSH ONE (17:06)
[2022-05-14 17:38] LABS: ESTIMATED GFR 78 mL/min (>60)
== END 2022-05-14 19:33 | disposition home or self-care (01) ==
LOC: SUPCPDRO 16:17 → JD.ED 16:17
DX: R53.83 Other fatigue (principal); E78.00 Pure hypercholesterolemia, unspecified; K21.9 Gastro-esophageal reflux disease without esophagitis; Z88.5 Allergy status to narcotic agent; Z88.0 Allergy status to penicillin; Z79.899 Other long term (current) drug therapy; Z86.16 Personal history of COVID-19; Z90.49 Acquired absence of other specified parts of digestive tract; Z20.822 Contact with and (suspected) exposure to COVID-19
CPT/HCPCS: 36415; 71045; 80053; 80306; 80307; 81001; 81025; 83735; 83880; 84443; 84484; 85025; 85379; 86140; 87086; 87635; 93005; 96361; 96374; 99285; J2405; J7030; U0002

== ENCOUNTER 2022-10-10 04:13 | Emergency (ER) | payer OTHER, MEDICAID ==
[2022-10-10] MEDS ORDERED: Ibuprofen 600 MG Tab PO ONE (04:36)
[2022-10-10 05:37] VITALS: BP 119/76; PULSE 88
== END 2022-10-10 05:38 | disposition home or self-care (01) ==
LOC: JD.ED 04:13
DX: S80.01XA Contusion of right knee, initial encounter (principal); E78.00 Pure hypercholesterolemia, unspecified; K21.9 Gastro-esophageal reflux disease without esophagitis; F17.210 Nicotine dependence, cigarettes, uncomplicated; Z88.5 Allergy status to narcotic agent; Z88.0 Allergy status to penicillin; Z79.899 Other long term (current) drug therapy; W01.0XXA Fall on same level from slipping, tripping and stumbling without subsequent striking against object, initial encounter; Y92.89 Other specified places as the place of occurrence of the external cause; Y99.0 Civilian activity done for income or pay
CPT/HCPCS: 73564; 99283; A9270

== ENCOUNTER 2022-12-15 03:15 | Emergency (ER) | payer MEDICAID ==
[2022-12-15 03:23] VITALS: BP 112/73; PULSE 73
[2022-12-15] MEDS ORDERED: LORazepam 2 MG/ML SDV IVPUSH ONE (03:32)
== END 2022-12-15 06:18 | disposition home or self-care (01) ==
LOC: JD.ED 03:15
DX: R56.9 Unspecified convulsions (principal); E78.00 Pure hypercholesterolemia, unspecified; K21.9 Gastro-esophageal reflux disease without esophagitis; E66.9 Obesity, unspecified; Z68.22 Body mass index [BMI] 22.0-22.9, adult; Z88.0 Allergy status to penicillin; Z88.5 Allergy status to narcotic agent; Z79.899 Other long term (current) drug therapy; Z86.16 Personal history of COVID-19; Z72.0 Tobacco use
CPT/HCPCS: 36415; 70450; 80053; 80306; 80307; 81001; 85025; 87086; 96374; 99284; J2060

== ENCOUNTER 2023-04-16 16:00 | Emergency (ER) | payer MEDICAID ==
[2023-04-16] MEDS ORDERED: Sodium Chloride 0.9% 1,000 ML IV ONE (16:24)
[2023-04-16] MEDS ORDERED: Sodium Chloride 0.9% 10 ML Syringe FLUSH PRN (16:24)
[2023-04-16] MEDS ORDERED: Ondansetron 4 MG/2 ML SDV IVPUSH ONE (16:24)
[2023-04-16] MEDS ORDERED: Iopamidol 612 MG/ML 100 ML Bottle IVPUSH ONE (16:40)
[2023-04-16 16:44] LABS: BASOPHILS ABSOLUTE AUTO 0.04 K/mm3 (0.01-0.08); BASOPHILS PERCENT AUTO 0.5 % (0.1-1.2); EOSINOPHILS ABSOLUTE AUTO 0.17 K/mm3 (0.04-0.36); HEMATOCRIT 39.9 % (34.1-44.9); HEMOGLOBIN 13.3 gm/dl (11.2-15.7); LYMPHOCYTES PERCENT AUTO 27.1 % (19.3-51.7); MEAN CORPUSCULAR HEMOGLOBIN 29.8 pg (25.6-32.2); MEAN CORPUSCULAR HGB CONC 33.3 g/dl (32.2-35.5); MEAN CORPUSCULAR VOLUME 89.5 fl (79.4-94.8); MEAN PLATELET VOLUME 10.7 fl (9.4-12.3); MONOCYTES ABSOLUTE AUTO 0.51 K/mm3 (0.24-0.36); NEUTROPHILS ABSOLUTE AUTO 5.47 K/mm3 (1.56-6.13); NEUTROPHILS PERCENT AUTO 64.4 % (34.0-71.1); PLATELET COUNT,PLT 241 K/mm3 (182-369); RED BLOOD CELL COUNT 4.46 M/mm3 (3.98-5.22); WHITE BLOOD CELL COUNT,WBC 8.49 K/mm3 (3.98-10.04)
[2023-04-16 16:46] LABS: APPEARANCE,URINE SLT CLOUDY (Clear); BILIRUBIN,URINE NEGATIVE (Negative); COLOR,URINE DARK YELLOW (Yellow); GLUCOSE,URINE NEGATIVE (Negative); KETONES,URINE TRACE (Negative); LEUKOCYTE ESTERASE,URINE 1+ (Negative); NITRITE,URINE NEGATIVE (Negative); OCCULT BLOOD,URINE 1+ (Negative); PROTEIN,URINE NEGATIVE (Negative); UROBILINOGEN,URINE 0.2 (0.2-1.0)
[2023-04-16 17:05] LABS: ALBUMIN 3.3 g/dl (3.4-5.0); ANION GAP 11.4 (5-15); BILIRUBIN TOTAL 0.7 mg/dL (0.2-1.0); BUN/CREATININE RATIO 11.3 (14-18); C-REACTIVE PROTEIN 0.5 mg/dL (<1.0); CALCIUM 8.9 mg/dL (8.5-10.1); CREATININE 0.8 mg/dL (0.55-1.02); EST CRCL DRUG DOSING (CG) 87.92 mL/min; MAGNESIUM 1.9 mg/dL (1.8-2.4); POTASSIUM,K 3.4 mEq/L (3.5-5.1); PROTEIN TOTAL,TP 6.5 g/dl (6.4-8.2)
[2023-04-16 17:07] LABS: BACTERIA,URINE MODERATE /hpf (FEW); MUCUS,URINE MANY /hpf (FEW)
[2023-04-16] MEDS ORDERED: cefTRIAXone 2 GM in Sodium Chloride 0.9% 100 ML IV ONE (17:36)
[2023-04-16] MEDS ORDERED: Aluminum Hydroxide/Magnesium Hydroxide/Simethicone Susp 30 ML Cup PO ONE (17:40)
[2023-04-16 18:33] VITALS: BP 100/78; PULSE 44
== END 2023-04-16 18:25 | disposition home or self-care (01) ==
LOC: JD.ED 16:00
DX: K52.9 Noninfective gastroenteritis and colitis, unspecified (principal); N30.00 Acute cystitis without hematuria; R00.1 Bradycardia, unspecified; F17.210 Nicotine dependence, cigarettes, uncomplicated; E66.9 Obesity, unspecified; E78.00 Pure hypercholesterolemia, unspecified; K21.9 Gastro-esophageal reflux disease without esophagitis; Z86.16 Personal history of COVID-19; Z79.899 Other long term (current) drug therapy; Z88.0 Allergy status to penicillin; Z88.5 Allergy status to narcotic agent; Z68.26 Body mass index [BMI] 26.0-26.9, adult
CPT/HCPCS: 36415; 74177; 80053; 81001; 83690; 83735; 85025; 86140; 87086; 93005; 93246; 96361; 96365; 96375; 99284; A9270; J0696; J2405; J3490; J7030; Q9967; 93010

== ENCOUNTER 2023-04-17 04:26 | Emergency (ER) | payer MEDICAID ==
[2023-04-17] MEDS ORDERED: Aspirin 325 MG Tab.EC PO ONE (04:39)
[2023-04-17] MEDS ORDERED: Nitroglycerin 0.4 MG Tab.SL SL ONE (04:39)
[2023-04-17 04:48] LABS: BASOPHILS ABSOLUTE AUTO 0.05 K/mm3 (0.01-0.08); BASOPHILS PERCENT AUTO 0.7 % (0.1-1.2); EOSINOPHILS ABSOLUTE AUTO 0.18 K/mm3 (0.04-0.36); EOSINOPHILS PERCENT AUTO 2.5 (0.7-5.8); HEMATOCRIT 37.2 % (34.1-44.9); HEMOGLOBIN 12.3 gm/dl (11.2-15.7); IMMATURE GRAN ABSOLUTE AUTO 0.01 K/mm3 (0.00-0.10); IMMATURE GRAN PERCENT AUTO 0.1 % (<=1.0); LYMPHOCYTES ABSOLUTE AUTO 2.81 K/mm3 (1.18-3.74); LYMPHOCYTES PERCENT AUTO 39.2 % (19.3-51.7); MEAN CORPUSCULAR HEMOGLOBIN 29.9 pg (25.6-32.2); MEAN CORPUSCULAR HGB CONC 33.1 g/dl (32.2-35.5); MEAN CORPUSCULAR VOLUME 90.5 fl (79.4-94.8); MONOCYTES ABSOLUTE AUTO 0.56 K/mm3 (0.24-0.36); MONOCYTES PERCENT AUTO 7.8 % (4.7-12.5); NEUTROPHILS ABSOLUTE AUTO 3.56 K/mm3 (1.56-6.13); NEUTROPHILS PERCENT AUTO 49.7 % (34.0-71.1); PLATELET COUNT,PLT 225 K/mm3 (182-369); RED BLOOD CELL COUNT 4.11 M/mm3 (3.98-5.22); WHITE BLOOD CELL COUNT,WBC 7.17 K/mm3 (3.98-10.04)
[2023-04-17 05:07] LABS: INR 0.93
[2023-04-17 05:08] LABS: D-DIMER QUANTITATIVE 0.38 mg/L (0.19-0.50)
[2023-04-17 05:12] LABS: A/G RATIO 1.1 (1-2); ALANINE AMINOTRANSFERASE,ALT 20 U/L (14-59); ALBUMIN 3.3 g/dl (3.4-5.0); ALKALINE PHOSPHATASE 86 U/L (46-116); ANION GAP 12.5 (5-15); ASPARTATE AMNIOTRANSFERASE,AST 16 U/L (15-37); BILIRUBIN TOTAL 0.3 mg/dL (0.2-1.0); BLOOD UREA NITROGEN,BUN 9 mg/dL (7-18); BUN/CREATININE RATIO 12.9 (14-18); CALCIUM 8.5 mg/dL (8.5-10.1); CARBON DIOXIDE,CO2 27 mEq/L (21-32); CHLORIDE,CL 104 mEq/L (98-107); CREATININE 0.7 mg/dL (0.55-1.02); EST CRCL DRUG DOSING (CG) 100.48 mL/min; ESTIMATED GFR 105 mL/min (>60); GLUCOSE RANDOM 93 mg/dL (70-99); POTASSIUM,K 3.5 mEq/L (3.5-5.1); PROTEIN TOTAL,TP 6.4 g/dl (6.4-8.2); SODIUM,NA 140 mEq/L (136-145)
[2023-04-17 05:14] LABS: TROPONIN I HIGH SENSITIVITY < 4 pg/mL (<=51)
[2023-04-17] MEDS ORDERED: Aspirin 81 MG Tab.Chew PO ONE (05:23)
[2023-04-17 07:07] VITALS: BP 100/52; PULSE 63
== END 2023-04-17 07:05 | disposition home or self-care (01) ==
LOC: JD.ED 04:26
DX: R07.89 Other chest pain (principal); E78.00 Pure hypercholesterolemia, unspecified; K21.9 Gastro-esophageal reflux disease without esophagitis; E66.9 Obesity, unspecified; Z68.27 Body mass index [BMI] 27.0-27.9, adult; Z86.16 Personal history of COVID-19; Z88.5 Allergy status to narcotic agent; Z88.0 Allergy status to penicillin; Z79.899 Other long term (current) drug therapy
CPT/HCPCS: 36415; 71045; 80053; 84484; 85025; 85379; 85610; 93005; 99285; A9270; 93010; 99284

== ENCOUNTER 2023-04-18 18:41 | Emergency (ER) | payer MEDICAID ==
[2023-04-18] MEDS ORDERED: Nitroglycerin 0.4 MG Tab.SL SL PRN (19:19)
[2023-04-18] MEDS ORDERED: Aspirin 81 MG Tab.Chew PO ONE (19:19)
[2023-04-18] MEDS ORDERED: Sodium Chloride 0.9% 1,000 ML IV SCH (19:30)
[2023-04-18 19:33] LABS: BASOPHILS ABSOLUTE AUTO 0.04 K/mm3 (0.01-0.08); BASOPHILS PERCENT AUTO 0.5 % (0.1-1.2); EOSINOPHILS ABSOLUTE AUTO 0.15 K/mm3 (0.04-0.36); EOSINOPHILS PERCENT AUTO 1.9 (0.7-5.8); HEMATOCRIT 38.5 % (34.1-44.9); HEMOGLOBIN 12.8 gm/dl (11.2-15.7); IMMATURE GRAN ABSOLUTE AUTO 0.01 K/mm3 (0.00-0.10); IMMATURE GRAN PERCENT AUTO 0.1 % (<=1.0); LYMPHOCYTES ABSOLUTE AUTO 2.43 K/mm3 (1.18-3.74); LYMPHOCYTES PERCENT AUTO 30.1 % (19.3-51.7); MEAN CORPUSCULAR HGB CONC 33.2 g/dl (32.2-35.5); MEAN CORPUSCULAR VOLUME 90.2 fl (79.4-94.8); MEAN PLATELET VOLUME 10.8 fl (9.4-12.3); MONOCYTES ABSOLUTE AUTO 0.53 K/mm3 (0.24-0.36); MONOCYTES PERCENT AUTO 6.6 % (4.7-12.5); NEUTROPHILS ABSOLUTE AUTO 4.92 K/mm3 (1.56-6.13); NEUTROPHILS PERCENT AUTO 60.8 % (34.0-71.1); PLATELET COUNT,PLT 233 K/mm3 (182-369); RED BLOOD CELL COUNT 4.27 M/mm3 (3.98-5.22); WHITE BLOOD CELL COUNT,WBC 8.08 K/mm3 (3.98-10.04)
[2023-04-18 19:51] LABS: INR 0.94; PROTHROMBIN TIME 10.1 SECONDS (9.7-12.0)
[2023-04-18 19:52] LABS: D-DIMER QUANTITATIVE 0.44 mg/L (0.19-0.50)
[2023-04-18 19:53] LABS: PTT,PARTIAL THROMBOPLSTIN TIME 25.5 SECONDS (21.7-31.4)
[2023-04-18 19:57] LABS: ALBUMIN 3.2 g/dl (3.4-5.0); ANION GAP 11.8 (5-15); BILIRUBIN TOTAL 0.3 mg/dL (0.2-1.0); CALCIUM 8.7 mg/dL (8.5-10.1); CREATININE 0.8 mg/dL (0.55-1.02); EST CRCL DRUG DOSING (CG) 87.92 mL/min; POTASSIUM,K 3.8 mEq/L (3.5-5.1); PROTEIN TOTAL,TP 6.3 g/dl (6.4-8.2)
[2023-04-18 20:10] VITALS: PULSE 58
[2023-04-18] MEDS ORDERED: hydrOXYzine HCl 25 MG Tab PO ONE (20:27)
[2023-04-18 20:36] VITALS: BP 106/79
== END 2023-04-18 20:45 | disposition home or self-care (01) ==
LOC: JD.ED 18:41
DX: R07.89 Other chest pain (principal); F41.9 Anxiety disorder, unspecified; Z86.16 Personal history of COVID-19; F17.210 Nicotine dependence, cigarettes, uncomplicated; Z88.5 Allergy status to narcotic agent; Z88.0 Allergy status to penicillin
CPT/HCPCS: 36415; 71045; 80053; 84484; 85025; 85379; 85610; 85730; 93005; 99285; A9270; J7030; 93010; 99284

== ENCOUNTER 2023-05-01 16:40 | Emergency (ER) | payer MEDICAID ==
[2023-05-01 17:47] LABS: BASOPHILS ABSOLUTE AUTO 0.1 K/mm3 (0.0-0.2); BASOPHILS PERCENT AUTO 0.7 % (0.0-1.0); EOSINOPHILS ABSOLUTE AUTO 0.1 K/mm3 (0.0-0.4); EOSINOPHILS PERCENT AUTO 1.6 % (0.0-6.0); HEMATOCRIT 39.9 % (37.0-47.0); HEMOGLOBIN 13.8 gm/dl (12.0-16.0); IMMATURE GRAN ABSOLUTE AUTO 0.03 K/mm3 (0.00-0.05); IMMATURE GRAN PERCENT AUTO 0.3 % (0.0-0.4); LYMPHOCYTES ABSOLUTE AUTO 2.3 K/mm3 (1.0-4.8); LYMPHOCYTES PERCENT AUTO 25.7 % (24.0-44.0); MEAN CORPUSCULAR HEMOGLOBIN 30.4 pg (28.0-32.0); MEAN CORPUSCULAR HGB CONC 34.6 g/dl (32.0-36.0); MEAN CORPUSCULAR VOLUME 87.9 fl (83.0-99.0); MEAN PLATELET VOLUME 10.3 fl (9.4-12.3); MONOCYTES ABSOLUTE AUTO 0.5 K/mm3 (0.0-0.8); MONOCYTES PERCENT AUTO 5.9 % (0.0-8.0); NEUTROPHILS ABSOLUTE AUTO 5.8 K/mm3 (1.8-7.7); NEUTROPHILS PERCENT AUTO 65.8 % (41.0-71.0); PLATELET COUNT,PLT 255 K/mm3 (150-400); RED BLOOD CELL COUNT 4.54 M/mm3 (4.10-5.30); WHITE BLOOD CELL COUNT,WBC 8.75 K/mm3 (3.9-11.3)
[2023-05-01] MEDS ORDERED: Aspirin 81 MG Tab.Chew PO ONE (18:02)
[2023-05-01 18:06] LABS: D-DIMER QUANTITATIVE 0.22 mg/L (0.19-0.50); INR 0.95; PROTHROMBIN TIME 10.2 SECONDS (9.7-12.0)
[2023-05-01 18:07] LABS: PTT,PARTIAL THROMBOPLSTIN TIME 25.8 SECONDS (21.7-31.4)
[2023-05-01 18:16] LABS: A/G RATIO 1.1 (1-2); ALANINE AMINOTRANSFERASE,ALT 34 U/L (14-59); ALBUMIN 3.6 g/dl (3.4-5.0); ALKALINE PHOSPHATASE 94 U/L (46-116); ANION GAP 13.7 (5-15); ASPARTATE AMNIOTRANSFERASE,AST 16 U/L (15-37); BILIRUBIN TOTAL 0.9 mg/dL (0.2-1.0); BLOOD UREA NITROGEN,BUN 10 mg/dL (7-18); BUN/CREATININE RATIO 14.3 (14-18); CALCIUM 8.8 mg/dL (8.5-10.1); CARBON DIOXIDE,CO2 27 mEq/L (21-32); CHLORIDE,CL 105 mEq/L (98-107); CREATININE 0.7 mg/dL (0.55-1.02); EST CRCL DRUG DOSING (CG) 100.48 mL/min; ESTIMATED GFR 105 mL/min (>60); GLUCOSE RANDOM 107 mg/dL (70-99); MAGNESIUM 1.9 mg/dL (1.8-2.4); POTASSIUM,K 3.7 mEq/L (3.5-5.1); PROTEIN TOTAL,TP 6.8 g/dl (6.4-8.2); SODIUM,NA 142 mEq/L (136-145)
[2023-05-01 18:17] LABS: TROPONIN I HIGH SENSITIVITY < 4 pg/mL (<=51)
[2023-05-01 19:40] VITALS: BP 106/69; PULSE 58
== END 2023-05-01 19:41 | disposition home or self-care (01) ==
LOC: JD.ED 16:40
DX: R07.89 Other chest pain (principal); Z88.5 Allergy status to narcotic agent; Z88.0 Allergy status to penicillin; Z72.0 Tobacco use
CPT/HCPCS: 36415; 71045; 80053; 83735; 83880; 84484; 85025; 85379; 85610; 85730; 93005; 99285; A9270

== ENCOUNTER 2023-07-14 16:58 | Emergency (ER) | payer MEDICAID ==
[2023-07-14] MEDS ORDERED: Sodium Chloride 0.9% 10 ML Syringe FLUSH PRN (17:15)
[2023-07-14] MEDS ORDERED: Aspirin 81 MG Tab.Chew PO ONE (17:15)
[2023-07-14 17:46] LABS: BASOPHILS ABSOLUTE AUTO 0.1 K/mm3 (0.0-0.2); BASOPHILS PERCENT AUTO 0.8 % (0.0-1.0); EOSINOPHILS ABSOLUTE AUTO 0.2 K/mm3 (0.0-0.4); EOSINOPHILS PERCENT AUTO 2.3 % (0.0-6.0); HEMATOCRIT 40.6 % (37.0-47.0); HEMOGLOBIN 13.3 gm/dl (12.0-16.0); IMMATURE GRAN ABSOLUTE AUTO 0.03 K/mm3 (0.00-0.05); IMMATURE GRAN PERCENT AUTO 0.4 % (0.0-0.4); LYMPHOCYTES ABSOLUTE AUTO 2.4 K/mm3 (1.0-4.8); LYMPHOCYTES PERCENT AUTO 31.5 % (24.0-44.0); MEAN CORPUSCULAR HEMOGLOBIN 29.8 pg (28.0-32.0); MEAN CORPUSCULAR HGB CONC 32.8 g/dl (32.0-36.0); MEAN CORPUSCULAR VOLUME 90.8 fl (83.0-99.0); MEAN PLATELET VOLUME 9.9 fl (9.4-12.3); MONOCYTES ABSOLUTE AUTO 0.5 K/mm3 (0.0-0.8); MONOCYTES PERCENT AUTO 6.6 % (0.0-8.0); NEUTROPHILS ABSOLUTE AUTO 4.5 K/mm3 (1.8-7.7); NEUTROPHILS PERCENT AUTO 58.4 % (41.0-71.0); PLATELET COUNT,PLT 236 K/mm3 (150-400); RED BLOOD CELL COUNT 4.47 M/mm3 (4.10-5.30); WHITE BLOOD CELL COUNT,WBC 7.72 K/mm3 (3.9-11.3)
[2023-07-14 18:07] LABS: PROTHROMBIN TIME 9.7 SECONDS (9.7-12.0)
[2023-07-14 18:08] LABS: D-DIMER QUANTITATIVE 0.26 mg/L (0.19-0.50)
[2023-07-14 18:12] LABS: INR < 0.93
[2023-07-14 18:25] LABS: A/G RATIO 1.1 (1-2); ALANINE AMINOTRANSFERASE,ALT 83 U/L (14-59); ALBUMIN 3.4 g/dl (3.4-5.0); ALKALINE PHOSPHATASE 92 U/L (46-116); ANION GAP 12.8 (5-15); ASPARTATE AMNIOTRANSFERASE,AST 36 U/L (15-37); BILIRUBIN TOTAL 0.5 mg/dL (0.2-1.0); BLOOD UREA NITROGEN,BUN 15 mg/dL (7-18); BUN/CREATININE RATIO 18.8 (14-18); CALCIUM 8.9 mg/dL (8.5-10.1); CARBON DIOXIDE,CO2 27 mEq/L (21-32); CHLORIDE,CL 107 mEq/L (98-107); CREATININE 0.8 mg/dL (0.55-1.02); EST CRCL DRUG DOSING (CG) 87.92 mL/min; ESTIMATED GFR 90 mL/min (>60); GLUCOSE RANDOM 108 mg/dL (70-99); POTASSIUM,K 3.8 mEq/L (3.5-5.1); PROTEIN TOTAL,TP 6.6 g/dl (6.4-8.2); SODIUM,NA 143 mEq/L (136-145)
[2023-07-14 18:26] LABS: TROPONIN I HIGH SENSITIVITY < 4 pg/mL (<=51)
[2023-07-14 19:49] VITALS: BP 122/84; PULSE 74
== END 2023-07-14 19:50 | disposition home or self-care (01) ==
LOC: JD.ED 16:58
DX: R07.89 Other chest pain (principal); Z88.5 Allergy status to narcotic agent; Z88.0 Allergy status to penicillin
CPT/HCPCS: 36415; 71045; 80053; 83735; 83880; 84484; 85025; 85379; 85610; 93005; 99285; A9270; J3490; 93010; 99284

== ENCOUNTER 2023-10-11 21:27 | Emergency (ER) | payer MEDICAID ==
[2023-10-11 22:02] LABS: BASOPHILS ABSOLUTE AUTO 0.1 K/mm3 (0.0-0.2); BASOPHILS PERCENT AUTO 0.8 % (0.0-1.0); EOSINOPHILS ABSOLUTE AUTO 0.2 K/mm3 (0.0-0.4); EOSINOPHILS PERCENT AUTO 1.5 % (0.0-6.0); HEMATOCRIT 40.2 % (37.0-47.0); HEMOGLOBIN 13.6 gm/dl (12.0-16.0); IMMATURE GRAN ABSOLUTE AUTO 0.03 K/mm3 (0.00-0.05); IMMATURE GRAN PERCENT AUTO 0.3 % (0.0-0.4); LYMPHOCYTES ABSOLUTE AUTO 3.3 K/mm3 (1.0-4.8); LYMPHOCYTES PERCENT AUTO 30.9 % (24.0-44.0); MEAN CORPUSCULAR HEMOGLOBIN 30.6 pg (28.0-32.0); MEAN CORPUSCULAR HGB CONC 33.8 g/dl (32.0-36.0); MEAN CORPUSCULAR VOLUME 90.3 fl (83.0-99.0); MEAN PLATELET VOLUME 10.1 fl (9.4-12.3); MONOCYTES ABSOLUTE AUTO 0.6 K/mm3 (0.0-0.8); MONOCYTES PERCENT AUTO 5.3 % (0.0-8.0); NEUTROPHILS ABSOLUTE AUTO 6.5 K/mm3 (1.8-7.7); NEUTROPHILS PERCENT AUTO 61.2 % (41.0-71.0); PLATELET COUNT,PLT 272 K/mm3 (150-400); RED BLOOD CELL COUNT 4.45 M/mm3 (4.10-5.30); WHITE BLOOD CELL COUNT,WBC 10.54 K/mm3 (3.9-11.3)
[2023-10-11] MEDS: Sodium Chloride 0.9% 1,000 ML IV STA (22:29)
[2023-10-11] MEDS: LORazepam 2 MG/ML SDV IVPUSH ONE (22:29)
[2023-10-11 22:31] LABS: A/G RATIO 1.2 (1-2); ALANINE AMINOTRANSFERASE,ALT 21 U/L (14-59); ALBUMIN 3.8 g/dl (3.4-5.0); ALKALINE PHOSPHATASE 92 U/L (46-116); ANION GAP 12.3 (5-15); ASPARTATE AMNIOTRANSFERASE,AST 14 U/L (15-37); BILIRUBIN TOTAL 0.8 mg/dL (0.2-1.0); BLOOD UREA NITROGEN,BUN 8 mg/dL (7-18); BUN/CREATININE RATIO 8.9 (14-18); CARBON DIOXIDE,CO2 28 mEq/L (21-32); CHLORIDE,CL 104 mEq/L (98-107); CREATININE 0.9 mg/dL (0.55-1.02); ESTIMATED GFR 78 mL/min (>60); GLUCOSE RANDOM 125 mg/dL (70-99); POTASSIUM,K 3.3 mEq/L (3.5-5.1); PROTEIN TOTAL,TP 7.1 g/dl (6.4-8.2); SODIUM,NA 141 mEq/L (136-145); TSH 1.599 uIU/mL (0.358-3.74)
[2023-10-11] MEDS: Sodium Chloride 0.9% 10 ML Syringe FLUSH PRN (22:50)
[2023-10-11 23:10] VITALS: BP 96/56; PULSE 70
== END 2023-10-11 23:09 | disposition home or self-care (01) ==
LOC: JD.ED 21:27
DX: R56.9 Unspecified convulsions (principal); Z86.16 Personal history of COVID-19; Z88.0 Allergy status to penicillin; Z88.5 Allergy status to narcotic agent
CPT/HCPCS: 36415; 70450; 80053; 83735; 84443; 85025; 96374; 99285; J2060; J3490; J7030; 99284

== ENCOUNTER 2024-01-08 20:02 | Emergency (ER) | payer MEDICAID ==
[2024-01-08 20:18] VITALS: BP 119/70
[2024-01-08 20:40] LABS: APPEARANCE,URINE CLEAR (Clear); BILIRUBIN,URINE 1+ (Negative); COLOR,URINE YELLOW (Yellow); GLUCOSE,URINE NEGATIVE (Negative); KETONES,URINE NEGATIVE (Negative); LEUKOCYTE ESTERASE,URINE NEGATIVE (Negative); NITRITE,URINE NEGATIVE (Negative); OCCULT BLOOD,URINE TRACE-INTACT (Negative); PH,URINE 5.5 (5.0-8.0); PROTEIN,URINE 1+ (Negative)
[2024-01-08 20:47] LABS: BACTERIA,URINE MODERATE /hpf (FEW); MUCUS,URINE MODERATE /hpf (FEW); RBC,URINE 0-5 /hpf (0-5); WBC,URINE 0-5 /hpf (0-5)
[2024-01-08] MEDS: Ketorolac 30 MG/ML SDV IM ONE (21:32)
[2024-01-08] MEDS: Orphenadrine 60 MG/2 ML Inj IM ONE (21:33)
[2024-01-08 21:56] VITALS: PULSE 64
== END 2024-01-08 21:54 | disposition home or self-care (01) ==
LOC: JD.ED 20:02
DX: S33.5XXA Sprain of ligaments of lumbar spine, initial encounter (principal); M54.16 Radiculopathy, lumbar region; E78.00 Pure hypercholesterolemia, unspecified; Z86.16 Personal history of COVID-19; Z79.899 Other long term (current) drug therapy; Z88.5 Allergy status to narcotic agent; Z88.0 Allergy status to penicillin; X58.XXXA Exposure to other specified factors, initial encounter
CPT/HCPCS: 74176; 81001; 96372; 99284; J1885; J2360

== ENCOUNTER 2024-01-16 18:11 | Emergency (ER) | payer MEDICAID ==
[2024-01-16] MEDS: Cyclobenzaprine 10 MG Tab PO ONE (19:36)
[2024-01-16] MEDS: Acetaminophen 325 MG Tab PO ONE (19:37)
[2024-01-16 19:51] VITALS: BP 105/68; PULSE 85
== END 2024-01-16 19:49 | disposition home or self-care (01) ==
LOC: JD.ED 18:11
DX: M54.42 Lumbago with sciatica, left side (principal); E78.00 Pure hypercholesterolemia, unspecified; Z86.16 Personal history of COVID-19; Z79.899 Other long term (current) drug therapy; Z88.1 Allergy status to other antibiotic agents; Z88.5 Allergy status to narcotic agent
CPT/HCPCS: 99283; A9270

== ENCOUNTER 2024-03-13 00:39 | Emergency (ER) | payer MEDICAID ==
[2024-03-13] MEDS: Sodium Chloride 0.9% 10 ML Syringe FLUSH PRN (00:50)
[2024-03-13 01:01] LABS: BASOPHILS ABSOLUTE AUTO 0.1 K/mm3 (0.0-0.2); BASOPHILS PERCENT AUTO 0.7 % (0.0-1.0); EOSINOPHILS ABSOLUTE AUTO 0.2 K/mm3 (0.0-0.4); EOSINOPHILS PERCENT AUTO 1.9 % (0.0-6.0); HEMATOCRIT 41.3 % (37.0-47.0); HEMOGLOBIN 13.9 gm/dl (12.0-16.0); IMMATURE GRAN ABSOLUTE AUTO 0.02 K/mm3 (0.00-0.05); IMMATURE GRAN PERCENT AUTO 0.2 % (0.0-0.4); LYMPHOCYTES ABSOLUTE AUTO 3.5 K/mm3 (1.0-4.8); LYMPHOCYTES PERCENT AUTO 32.7 % (24.0-44.0); MEAN CORPUSCULAR HEMOGLOBIN 30.2 pg (28.0-32.0); MEAN CORPUSCULAR HGB CONC 33.7 g/dl (32.0-36.0); MEAN CORPUSCULAR VOLUME 89.6 fl (83.0-99.0); MEAN PLATELET VOLUME 10.1 fl (9.4-12.3); MONOCYTES ABSOLUTE AUTO 0.6 K/mm3 (0.0-0.8); MONOCYTES PERCENT AUTO 5.5 % (0.0-8.0); NEUTROPHILS ABSOLUTE AUTO 6.4 K/mm3 (1.8-7.7); PLATELET COUNT,PLT 299 K/mm3 (150-400); RED BLOOD CELL COUNT 4.61 M/mm3 (4.10-5.30)
[2024-03-13 01:20] LABS: A/G RATIO 1.2 (1-2); ALANINE AMINOTRANSFERASE,ALT 28 U/L (14-59); ALBUMIN 3.8 g/dl (3.4-5.0); ALKALINE PHOSPHATASE 93 U/L (46-116); ANION GAP 14.8 (5-15); ASPARTATE AMNIOTRANSFERASE,AST 24 U/L (15-37); BILIRUBIN TOTAL 0.4 mg/dL (0.2-1.0); BLOOD UREA NITROGEN,BUN 12 mg/dL (7-18); BUN/CREATININE RATIO 13.3 (14-18); CALCIUM 8.9 mg/dL (8.5-10.1); CARBON DIOXIDE,CO2 26 mEq/L (21-32); CHLORIDE,CL 102 mEq/L (98-107); CREATININE 0.9 mg/dL (0.55-1.02); ESTIMATED GFR 77 mL/min (>60); GLUCOSE RANDOM 106 mg/dL (70-99); POTASSIUM,K 3.8 mEq/L (3.5-5.1); PROTEIN TOTAL,TP 7.1 g/dl (6.4-8.2); SODIUM,NA 139 mEq/L (136-145)
[2024-03-13 01:23] LABS: TROPONIN I HIGH SENSITIVITY < 4 pg/mL (<=51)
[2024-03-13 01:42] LABS: APPEARANCE,URINE CLEAR (Clear); BILIRUBIN,URINE NEGATIVE (Negative); COLOR,URINE YELLOW (Yellow); GLUCOSE,URINE NEGATIVE (Negative); KETONES,URINE NEGATIVE (Negative); LEUKOCYTE ESTERASE,URINE NEGATIVE (Negative); NITRITE,URINE NEGATIVE (Negative); OCCULT BLOOD,URINE TRACE-INTACT (Negative); PROTEIN,URINE NEGATIVE (Negative); UROBILINOGEN,URINE 0.2 (0.2-1.0)
[2024-03-13 01:49] LABS: BACTERIA,URINE FEW /hpf (FEW); MUCUS,URINE FEW /hpf (FEW); RBC,URINE 0-5 /hpf (0-5); SQUAMOUS EPITHELIAL CELLS,UR 0-5 /hpf (0-5); WBC,URINE 0-5 /hpf (0-5)
[2024-03-13 01:51] LABS: BARBITURATE SCREEN,URINE NEGATIVE (CUTOFF=200); BENZODIAZEPINES SCREEN,URINE NEGATIVE (CUTOFF=150); BUPRENORPHINE SCREEN,URINE NEGATIVE (CUTOFF=10); METHADONE SCREEN, URINE NEGATIVE (CUTOFF=200); METHAMPHETAMINES SCREEN, URINE NEGATIVE (CUTOFF=500); OXYCODONE SCREEN,URINE NEGATIVE (CUT0FF=100); THC SCREEN,URINE 20 NG/ML NEGATIVE (CUTOFF=50)
[2024-03-13 01:52] LABS: AMPHETAMINES SCREEN, URINE NEGATIVE (CUTOFF=500)
[2024-03-13] MEDS: Pantoprazole 40 MG Vial IVPUSH ONE (02:14)
[2024-03-13 04:16] VITALS: BP 90/58; PULSE 74
== END 2024-03-13 04:08 | disposition home or self-care (01) ==
LOC: JD.ED 00:39
DX: K21.00 Gastro-esophageal reflux disease with esophagitis, without bleeding (principal); K29.50 Unspecified chronic gastritis without bleeding; R07.89 Other chest pain; E78.00 Pure hypercholesterolemia, unspecified; Z86.16 Personal history of COVID-19; Z90.49 Acquired absence of other specified parts of digestive tract; Z79.899 Other long term (current) drug therapy; Z88.0 Allergy status to penicillin; Z88.5 Allergy status to narcotic agent
CPT/HCPCS: 36415; 80053; 80306; 80307; 81001; 83735; 84484; 85025; 93005; 96374; 99285; C9113; J3490

== ENCOUNTER 2024-04-01 18:15 | Emergency (ER) | payer MEDICAID ==
[2024-04-01 18:50] LABS: BASOPHILS ABSOLUTE AUTO 0.1 K/mm3 (0.0-0.2); BASOPHILS PERCENT AUTO 0.8 % (0.0-1.0); EOSINOPHILS ABSOLUTE AUTO 0.1 K/mm3 (0.0-0.4); EOSINOPHILS PERCENT AUTO 0.9 % (0.0-6.0); HEMATOCRIT 42.2 % (37.0-47.0); HEMOGLOBIN 14.1 gm/dl (12.0-16.0); IMMATURE GRAN ABSOLUTE AUTO 0.02 K/mm3 (0.00-0.05); IMMATURE GRAN PERCENT AUTO 0.3 % (0.0-0.4); LYMPHOCYTES ABSOLUTE AUTO 1.9 K/mm3 (1.0-4.8); LYMPHOCYTES PERCENT AUTO 23.7 % (24.0-44.0); MEAN CORPUSCULAR HGB CONC 33.4 g/dl (32.0-36.0); MEAN CORPUSCULAR VOLUME 89.8 fl (83.0-99.0); MEAN PLATELET VOLUME 10.1 fl (9.4-12.3); MONOCYTES ABSOLUTE AUTO 0.5 K/mm3 (0.0-0.8); MONOCYTES PERCENT AUTO 6.4 % (0.0-8.0); NEUTROPHILS ABSOLUTE AUTO 5.4 K/mm3 (1.8-7.7); NEUTROPHILS PERCENT AUTO 67.9 % (41.0-71.0); PLATELET COUNT,PLT 270 K/mm3 (150-400); WHITE BLOOD CELL COUNT,WBC 7.99 K/mm3 (3.9-11.3)
[2024-04-01 18:59] LABS: A/G RATIO 1.2 (1-2); ANION GAP 14.8 (5-15); BUN/CREATININE RATIO 12.5 (14-18); CALCIUM 9.2 mg/dL (8.5-10.1); CREATININE 0.8 mg/dL (0.55-1.02); EST CRCL DRUG DOSING (CG) 83.92 mL/min; POTASSIUM,K 3.8 mEq/L (3.5-5.1); PROTEIN TOTAL,TP 7.4 g/dl (6.4-8.2)
[2024-04-01] MEDS: LORazepam 2 MG/ML SDV IVPUSH ONE (19:22)
[2024-04-01] MEDS: Sodium Chloride 0.9% 1,000 ML IV STA (19:22)
[2024-04-01] MEDS: Sodium Chloride 0.9% 10 ML Syringe FLUSH PRN (19:23)
[2024-04-01] MEDS: Ketorolac 30 MG/ML SDV IVPUSH ONE (20:55)
[2024-04-01 21:36] VITALS: BP 98/61; PULSE 48
== END 2024-04-01 21:35 | disposition home or self-care (01) ==
LOC: JD.ED 18:15
DX: R56.9 Unspecified convulsions (principal); E78.00 Pure hypercholesterolemia, unspecified; Z88.5 Allergy status to narcotic agent; Z88.0 Allergy status to penicillin; Z79.899 Other long term (current) drug therapy; Z86.16 Personal history of COVID-19
CPT/HCPCS: 36415; 70450; 80053; 83605; 85025; 96374; 96375; 99285; J1885; J2060; J3490; J7030; 99284

== ENCOUNTER 2025-02-05 12:20 | Emergency (ER) | payer MEDICAID ==
[2025-02-05] MEDS ORDERED: Sodium Chloride 0.9% 10 ML Syringe FLUSH PRN (12:45)
[2025-02-05 13:07] LABS: BASOPHILS ABSOLUTE AUTO 0.1 K/mm3 (0.0-0.2); BASOPHILS PERCENT AUTO 0.9 % (0.0-1.0); EOSINOPHILS ABSOLUTE AUTO 0.1 K/mm3 (0.0-0.4); EOSINOPHILS PERCENT AUTO 1.3 % (0.0-6.0); HEMATOCRIT 39.6 % (37.0-47.0); HEMOGLOBIN 12.8 gm/dl (12.0-16.0); IMMATURE GRAN ABSOLUTE AUTO 0.01 K/mm3 (0.00-0.05); IMMATURE GRAN PERCENT AUTO 0.1 % (0.0-0.4); LYMPHOCYTES ABSOLUTE AUTO 2.8 K/mm3 (1.0-4.8); LYMPHOCYTES PERCENT AUTO 36.2 % (24.0-44.0); MEAN CORPUSCULAR HEMOGLOBIN 29.6 pg (28.0-32.0); MEAN CORPUSCULAR HGB CONC 32.3 g/dl (32.0-36.0); MEAN CORPUSCULAR VOLUME 91.5 fl (83.0-99.0); MEAN PLATELET VOLUME 10.9 fl (9.4-12.3); MONOCYTES ABSOLUTE AUTO 0.5 K/mm3 (0.0-0.8); MONOCYTES PERCENT AUTO 6.9 % (0.0-8.0); NEUTROPHILS ABSOLUTE AUTO 4.2 K/mm3 (1.8-7.7); NEUTROPHILS PERCENT AUTO 54.6 % (41.0-71.0); PLATELET COUNT,PLT 236 K/mm3 (150-400); RED BLOOD CELL COUNT 4.33 M/mm3 (4.10-5.30); WHITE BLOOD CELL COUNT,WBC 7.71 K/mm3 (3.9-11.3)
[2025-02-05] MEDS: HYDROmorphone 0.5 MG/0.5 ML Syringe IVPUSH ONE (13:07)
[2025-02-05 13:32] LABS: A/G RATIO 1.2 (1-2); ALANINE AMINOTRANSFERASE,ALT 14 U/L (14-59); ALBUMIN 3.7 g/dl (3.4-5.0); ALKALINE PHOSPHATASE 77 U/L (46-116); ANION GAP 11.1 (5-15); ASPARTATE AMNIOTRANSFERASE,AST 18 U/L (15-37); BILIRUBIN TOTAL 0.8 mg/dL (0.2-1.0); BLOOD UREA NITROGEN,BUN 15 mg/dL (7-18); BUN/CREATININE RATIO 18.8 (14-18); CALCIUM 9.1 mg/dL (8.5-10.1); CARBON DIOXIDE,CO2 28 mEq/L (21-32); CHLORIDE,CL 103 mEq/L (98-107); CREATININE 0.8 mg/dL (0.55-1.02); EST CRCL DRUG DOSING (CG) 83.92 mL/min; ESTIMATED GFR 89 mL/min (>60); GLUCOSE RANDOM 89 mg/dL (70-99); POTASSIUM,K 4.1 mEq/L (3.5-5.1); PROTEIN TOTAL,TP 6.7 g/dl (6.4-8.2); SODIUM,NA 138 mEq/L (136-145); TROPONIN I HIGH SENSITIVITY < 4 pg/mL (<=51)
[2025-02-05 14:56] VITALS: BP 121/78; PULSE 50
== END 2025-02-05 14:50 | disposition home or self-care (01) ==
LOC: JD.ED 12:20
DX: R07.89 Other chest pain (principal); F17.210 Nicotine dependence, cigarettes, uncomplicated; E78.00 Pure hypercholesterolemia, unspecified; Z86.16 Personal history of COVID-19; Z79.899 Other long term (current) drug therapy; Z88.0 Allergy status to penicillin; Z88.5 Allergy status to narcotic agent
CPT/HCPCS: 36415; 71045; 71045-26; 80053; 83735; 84484; 85025; 85379; 93005; 93010; 96374; 99283; 99285-25

== ENCOUNTER 2025-02-16 18:16 | Emergency (ER) | payer MEDICAID ==
[2025-02-16] MEDS: Sodium Chloride 0.9% 1,000 ML IV SCH (18:50)
[2025-02-16 19:16] LABS: BASOPHILS ABSOLUTE AUTO 0.1 K/mm3 (0.0-0.2); BASOPHILS PERCENT AUTO 0.8 % (0.0-1.0); EOSINOPHILS ABSOLUTE AUTO 0.2 K/mm3 (0.0-0.4); EOSINOPHILS PERCENT AUTO 1.7 % (0.0-6.0); HEMATOCRIT 44.7 % (37.0-47.0); HEMOGLOBIN 14.8 gm/dl (12.0-16.0); IMMATURE GRAN ABSOLUTE AUTO 0.03 K/mm3 (0.00-0.05); IMMATURE GRAN PERCENT AUTO 0.3 % (0.0-0.4); LYMPHOCYTES ABSOLUTE AUTO 3.2 K/mm3 (1.0-4.8); LYMPHOCYTES PERCENT AUTO 31.8 % (24.0-44.0); MEAN CORPUSCULAR HGB CONC 33.1 g/dl (32.0-36.0); MEAN CORPUSCULAR VOLUME 90.5 fl (83.0-99.0); MEAN PLATELET VOLUME 10.8 fl (9.4-12.3); MONOCYTES ABSOLUTE AUTO 0.7 K/mm3 (0.0-0.8); MONOCYTES PERCENT AUTO 6.5 % (0.0-8.0); NEUTROPHILS PERCENT AUTO 58.9 % (41.0-71.0); PLATELET COUNT,PLT 272 K/mm3 (150-400); RED BLOOD CELL COUNT 4.94 M/mm3 (4.10-5.30); WHITE BLOOD CELL COUNT,WBC 10.11 K/mm3 (3.9-11.3)
[2025-02-16 19:23] LABS: PROTHROMBIN TIME 9.8 SECONDS (9.7-12.0)
[2025-02-16 19:25] LABS: PTT,PARTIAL THROMBOPLSTIN TIME 25.9 SECONDS (21.7-31.4)
[2025-02-16 19:28] LABS: A/G RATIO 1.1 (1-2); ANION GAP 9.8 (5-15); BILIRUBIN TOTAL 0.4 mg/dL (0.2-1.0); CALCIUM 9.2 mg/dL (8.5-10.1); CREATININE 0.8 mg/dL (0.55-1.02); EST CRCL DRUG DOSING (CG) 83.92 mL/min; MAGNESIUM 2.1 mg/dL (1.8-2.4); POTASSIUM,K 3.8 mEq/L (3.5-5.1); PROTEIN TOTAL,TP 7.5 g/dl (6.4-8.2)
[2025-02-16 19:31] LABS: INR < 0.93
[2025-02-16] MEDS ORDERED: Ibuprofen 800 MG Tab PO ONE (19:49)
[2025-02-16] MEDS: Lactated Ringers 1,000 ML IV SCH (19:59)
[2025-02-16 20:01] VITALS: PULSE 68
[2025-02-16 21:01] VITALS: BP 100/60
== END 2025-02-16 22:21 | disposition home or self-care (01) ==
LOC: JD.ED 18:16
DX: R07.2 Precordial pain (principal); I95.9 Hypotension, unspecified; E78.00 Pure hypercholesterolemia, unspecified; Z88.5 Allergy status to narcotic agent; Z88.0 Allergy status to penicillin; Z79.899 Other long term (current) drug therapy; Z86.16 Personal history of COVID-19; Z90.49 Acquired absence of other specified parts of digestive tract
CPT/HCPCS: 36415; 71045; 80053; 83735; 83880; 84484; 85025; 85610; 85730; 93005; 96360; 96361; 99285; J7030; J7120; 93010; 99284

== ENCOUNTER 2025-07-30 06:49 | Emergency (ER) | payer MEDICAID ==
[2025-07-30] MEDS: diphenhydrAMINE 50 MG/ML SDV IVPUSH ONE (07:32)
[2025-07-30] MEDS: Sodium Chloride 0.9% 10 ML Syringe FLUSH PRN (07:32)
[2025-07-30] MEDS: Ketorolac 30 MG/ML SDV IVPUSH ONE (07:33)
[2025-07-30 07:36] LABS: BASOPHILS ABSOLUTE AUTO 0.1 K/mm3 (0.0-0.2); BASOPHILS PERCENT AUTO 0.8 % (0.0-1.0); EOSINOPHILS ABSOLUTE AUTO 0.1 K/mm3 (0.0-0.4); EOSINOPHILS PERCENT AUTO 1.3 % (0.0-6.0); IMMATURE GRAN ABSOLUTE AUTO 0.04 K/mm3 (0.00-0.05); IMMATURE GRAN PERCENT AUTO 0.5 % (0.0-0.4); LYMPHOCYTES ABSOLUTE AUTO 2.2 K/mm3 (1.0-4.8); LYMPHOCYTES PERCENT AUTO 26.3 % (24.0-44.0); MEAN PLATELET VOLUME 10.0 fl (9.4-12.3); MONOCYTES ABSOLUTE AUTO 0.4 K/mm3 (0.0-0.8); MONOCYTES PERCENT AUTO 5.3 % (0.0-8.0); NEUTROPHILS ABSOLUTE AUTO 5.5 K/mm3 (1.8-7.7); NEUTROPHILS PERCENT AUTO 65.8 % (41.0-71.0); NRBC ABSOLUTE 0.00 (0.00-0.02); NRBC PERCENT 0.0 % (0.0-0.2); PLATELET COUNT,PLT 272 K/mm3 (150-400); RED BLOOD CELL COUNT 4.52 M/mm3 (4.10-5.30); WHITE BLOOD CELL COUNT,WBC 8.30 K/mm3 (3.9-11.3)
[2025-07-30 08:00] LABS: A/G RATIO 1.1 (1-2); ALANINE AMINOTRANSFERASE,ALT 19.0 U/L (14-59); ASPARTATE AMNIOTRANSFERASE,AST 14.0 U/L (15-37); BILIRUBIN TOTAL 0.5 mg/dL (0.2-1.0); BLOOD UREA NITROGEN,BUN 14.0 mg/dL (7-18); CARBON DIOXIDE,CO2 29.0 mEq/L (21-32); CHLORIDE,CL 104.0 mEq/L (98-107); CREATININE 0.6 mg/dL (0.55-1.02); EST CRCL DRUG DOSING (CG) 114.62 mL/min; ESTIMATED GFR 108.0 mL/min (>60); GLUCOSE RANDOM 98.0 mg/dL (70-99); POTASSIUM,K 3.9 mEq/L (3.5-5.1); PROTEIN TOTAL,TP 6.7 g/dl (6.4-8.2); SODIUM,NA 141.0 mEq/L (136-145)
[2025-07-30 08:58] VITALS: BP 98/60; PULSE 52
== END 2025-07-30 08:57 | disposition home or self-care (01) ==
LOC: JD.ED 06:49
DX: R51.9 Headache, unspecified (principal); E78.00 Pure hypercholesterolemia, unspecified; Z79.899 Other long term (current) drug therapy; Z88.5 Allergy status to narcotic agent; Z88.0 Allergy status to penicillin; Z86.16 Personal history of COVID-19; Z90.49 Acquired absence of other specified parts of digestive tract
CPT/HCPCS: 36415; 70450; 80053; 83735; 85025; 96374; 96375; 99284; J1200; J1885; J2765